=== PATIENT | male | born 1930 | race Caucasian/White ===

== ENCOUNTER 2016-09-18 10:55 | Inpatient (IN) | payer MEDICAID ==
[~2016-09-18] VITALS: Ht 175.3 cm; Wt 76.7 kg
[2016-09-18 11:04] VITALS: BP 104/64
--- NOTE | 2016-09-18 11:08 | NUR ---
PT AMBULATED TO BED 5 AT THIS TIME.
--- NOTE | 2016-09-18 11:10 | NUR ---
86M BIB FAMILY C/O POSTERIOR HEADACHE, PRESSURE, NON-RADIATING, 9/10 X THIS MORNING; PT DENIES TRAUMA OR INJURY TO SITE AT THIS TIME; PT A&OX4, PERRLA, ABLE TO SEE, BUT C/O SLIGHT BLURRY VISION AT THIS TIME; PT STATES "IT FEELS LIKE SOMETHING IS COMING UP FROM MY STOMACH TO MY THROAT", BUT DENIES N/V/D OR PAIN TO ABDOMEN AT THIS TIME; ABDOMEN ROUND, SOFT, NON-TENDER, ACTIVE BOWEL SOUNDS X 4 QUADRANTS; BL LUNG SOUNDS CLEAR, RR EVEN/UNLABORED, SKIN IS WARM/DRY/INTACT AT THIS TIME; PT AMBULATES W/ CANE; PT RESTING IN BED W/ HOB ELEVATED AND IN LOWEST POSITION; POSITIONED FOR COMFORT; ER MD MADE AWARE OF STATUS. WILL CONTINUE TO MONITOR.
--- NOTE | 2016-09-18 11:14 | NUR ---
ANGELINE FALK EVALUATING PT AT BEDSIDE.
[2016-09-18] MEDS ORDERED: NACL 0.9% 1,000 ML IV SCH (11:18)
[2016-09-18 11:43] LABS: BASOPHILS # (AUTO) 0.2 K/uL (0.00-0.22); EOSINOPHILS # (AUTO) 0.2 K/uL (0-0.4); HEMOGLOBIN 15.7 g/dL (12.0-18.0); LYMPHOCYTES # (AUTO) 0.6 K/uL (2.0-11.5); LYMPHOCYTES % (AUTO) 11.2 % (20.5-51.1); MEAN CORPUSCULAR HEMOGLOBIN 30 pg (27-31); MEAN CORPUSCULAR HGB CONC 32 g/dL (33-37); MEAN CORPUSCULAR VOLUME 95 fL (80-94); MONOCYTES # (AUTO) 0.7 K/uL (0.8-1.0); MONOCYTES % (AUTO) 12.6 % (1.7-9.3); NEUTROPHILS # (AUTO) 3.8 K/uL (1.8-7.7); NEUTROPHILS % (AUTO) 70.2 % (42.2-75.2); PLATELET COUNT (AUTO) 254 K/uL (140-450); RED BLOOD CELL COUNT(AUTO) 5.15 MIL/uL (4.20-6.10); RED CELL DISTRIBUTION WIDTH 14.1 % (11.6-13.7); WHITE BLOOD COUNT (AUTO) 5.5 K/uL (4.8-10.8)
[2016-09-18 11:50] LABS: APPEARANCE,URINE HAZY (CLEAR); BILIRUBIN,URINE NEGATIVE (NEGATIVE); BLOOD, URINE NEGATIVE (NEGATIVE); COLOR,URINE YELLOW (YELLOW); LEUKOCYTE ESTERASE ,URINE NEGATIVE (NEGATIVE); NITRITE, URINE NEGATIVE (NEGATIVE); PH,URINE 5.5 (5.0-9.0); PROTEIN,URINE NEGATIVE (NEGATIVE); UGLUCOSE NEGATIVE (NEGATIVE); UROBILINOGEN,URINE 0.2 EU/dL (0.2 - 1)
--- NOTE | 2016-09-18 11:54 | NUR ---
XRAY AT BEDSIDE.
--- NOTE | 2016-09-18 12:05 | NUR ---
Yobani flynn in [facility] - 09/18/16 at 1205 by DEEDEE GPt report given to WILBERT MALONEY. Transfer of care at this time.
--- NOTE | 2016-09-18 12:05 | NUR ---
Pt report given to WILBERT MALONEY. Transfer of care at this time.
[2016-09-18 12:40] LABS: ANION GAP 9.7 (8-16); CALCIUM 8.2 mg/dL (8.5-10.1); CARBON DIOXIDE 31.7 mmol/L (21-32); CHLORIDE 106 mmol/L (98-107); CREATININE 0.9 mg/dL (0.6-1.3); GLUCOSE 101 mg/dL (74-106); POTASSIUM 4.4 mmol/L (3.5-5.1); SODIUM SERUM 143 mmol/L (136-145); UREA NITROGEN, BLOOD 15 mg/dL (7-18)
[2016-09-18 12:45] LABS: ALANINE AMINOTRANSFERASE 31 U/L (12-78); ALBUMIN 3.1 g/dL (3.4-5.0); ALKALINE PHOSPHATASE 81 U/L (46-116); ASPARTATE AMINOTRANSFERASE 40 U/L (15-37); LIPASE 69 U/L (73-393); TOTAL BILIRUBIN 0.7 mg/dL (0.0-1.0); TOTAL PROTEIN, SERUM 6.6 g/dL (6.4-8.2)
--- NOTE | 2016-09-18 12:58 | NUR ---
Patient taken to CT scan via gurney by [facility].
[2016-09-18 13:00] LABS: CREATINE KINASE MB 0.8 ng/mL (0-3.6)
--- NOTE | 2016-09-18 13:46 | NUR ---
Patient appears to be resting comfortably in bed. VSS.
[2016-09-18] MEDS: NACL 0.9% 1,000 ML IV SCH (13:56)
[2016-09-18] MEDS ORDERED: MORPHINE SULFATE 2 MG/ML SYR IVP PRN (14:00)
[2016-09-18] MEDS: PANTOPRAZOLE 40 MG TABEC PO SCH (14:00)
[2016-09-18] MEDS ORDERED: ACETAMINOPHEN 325 MG TAB PO PRN (14:00)
[2016-09-18] MEDS: LISINOPRIL 5 MG TAB PO SCH (14:00)
[2016-09-18] MEDS: CARVEDILOL 6.25 MG TAB PO SCH ×2 (14:00→20:52)
[2016-09-18] MEDS ORDERED: DOCUSATE SODIUM 100 MG GELCAP PO PRN (14:00)
[2016-09-18] MEDS ORDERED: ASPIRIN 325 MG TABEC PO SCH ×2 (14:00→15:50)
[2016-09-18] MEDS ORDERED: HYDROcodone/APAP 7.5/325 MG 1 TAB PO PRN (14:00)
[2016-09-18] MEDS: ATORVASTATIN 20 MG TAB PO SCH (14:00)
[2016-09-18] MEDS ORDERED: ONDANSETRON 4 MG/2 ML VIAL IM/IVP PRN (14:00)
[2016-09-18] MEDS ORDERED: ALBUTEROL SULFATE/IPRATROPIU 3 ML SOL IH PRN (14:10)
[2016-09-18 14:34] LABS: INR 1.1 (0.8-1.2); PARTIAL THROMBOPLASTIN TIME 28.6 secs (22-35.6); PROTHROMBIN TIME 10.7 secs (10.8-13.4)
--- NOTE | 2016-09-18 14:45 | NUR ---
RECEIVED REPORT FROM FELICITAS ATKINS IN ER, PT ARRIVED AND IS AWAKE AND ALERT, NO SIGNS OF ACUTE DISTRESS. BREATHING EVEN AND UNLABORED BILATERALLY. BOWEL SOUNDS ACTIVE IN ALL 4 QUADRANTS, BOWEL AND BLADDER CONTINENCE, SKIN INTACT, IV PATENT AND ASYMPTOMATIC WITHOUT REDNESS OR SWELLING, AMBULATORY USES CANE, APPLIED TELE MONITOR. PT SET[place] SPEAKING. ORIENTED PATIENT TO UNIT AND HOSPITAL, PT VERBALIZED UNDERSTANDING, BED IN LOW POSITION WITH BILATERAL HALF SIDE RAILS UP, CALL LIGHT WITHIN REACH.
[2016-09-18 14:51] LABS: CHOL/HDL RATIO 3.3 (1-4.5); FREE T4 (FREE THYROXINE) 1.03 ng/dL (0.76-1.46); MAGNESIUM 1.9 mg/dL (1.8-2.4); PHOSPHORUS 3.6 mg/dL (2.5-4.9); THYROID STIMULATING HORMONE 1.07 uIU/mL (0.34-3.76)
--- NOTE | 2016-09-18 14:54 | NUR ---
Patient will be admitted to care of DR. MARQUEZ. Admited to TELE. Will go to room 124B. Belongings list completed. Report to WILBERT HUNT.
[2016-09-18] MEDS ORDERED: CARVEDILOL 6.25 MG TAB PO SCH (15:50)
[2016-09-18] MEDS ORDERED: PANTOPRAZOLE 40 MG TABEC PO SCH (15:50)
[2016-09-18] MEDS ORDERED: LISINOPRIL 5 MG TAB PO SCH (15:50)
[2016-09-18] MEDS ORDERED: ATORVASTATIN 20 MG TAB PO SCH (15:50)
[2016-09-18] MEDS ORDERED: metroNIDAZOLE 500 MG/NS PREMIX 100 ML IV SCH (15:55)
--- NOTE | 2016-09-18 16:06 | NUR ---
CALLED PHARMACY SCHEDULED MEDICATIONS FOR 1400 ARE NOT SHOWING UP IN THE [facility], PER PHARMACY GLITCH ENTERED IN ONE TIME DOSE FOR TODAY'S MEDICATIONS. PER DR CHARLTON, OKAY TO GIVE MEDICATIONS ONLY WITH NPO.
[2016-09-18] MEDS: metroNIDAZOLE 500 MG/NS PREMIX 100 ML IV SCH ×2 (16:18→20:52)
[2016-09-18] MEDS ORDERED: ECOTRIN 81 MG TABEC PO SCH (16:25)
[2016-09-18] MEDS ORDERED: KETOROLAC 15 MG/ML VIAL IVP SCH (17:00)
[2016-09-18] MEDS ORDERED: APAP/BUTAL/CAFF 325/50/40 MG 1 TAB PO PRN (17:20)
[2016-09-18] MEDS: LEVOFLOXACIN 750 MG/D5W PREMIX 150 ML IV SCH (17:21)
--- NOTE | 2016-09-18 19:30 | NUR ---
RECEIVED REPORT FROM DAY RN AT BEDSIDE, PATIENT IS AAOX4 UPPER SORBIAN SPEAKING, ON ROOM AIR NO SOB OR SIGN OF DISTRESS, IV TO LEFT AC PATENT AND INTACT, SKIN INTACT, PATIENT DENIES PAIN, ONLY STATES DISCOMFORT IN THE ABDOMEN LIKE IT IS FULL OF GAS, DOES NOT WANT ANY MEDICATION. DISCUSSED PLAN OF CARE WITH PATIENT, PATIENT VERBALIZED UNDERSTANDING, SAFETY MEASURES CHECKED, CALL LIGHT WITHIN REACH. WILL CONTINUE TO MONITOR.
--- NOTE | 2016-09-18 19:37 | NUR ---
PT AWAKE AND ALERT, NO SIGNS OF ACUTE DISTRESS. BED IN LOW POSITION BILATERAL HALF SIDE RAILS UP WITH CALL LIGHT WITHIN REACH. ENDORSED PATIENT TO ETYMOLOGY PROFESSOR NURSE FOR CONTINUITY OF CARE.
[2016-09-18 20:00] VITALS: BP 112/74
--- NOTE | 2016-09-18 20:40 | NUR ---
PM MEDS ADMINISTERED, PATIENT TOLERATED WELL, PATIENT RESTING COMFORTABLE IN BED, CALL LIGHT WITHIN REACH. WILL CONTINUE TO MONITOR.
--- NOTE | 2016-09-18 22:30 | NUR ---
PATIENT SLEEPING, NO SIGN OF DISTRESS, CALL LIGHT WITHIN REACH. WILL CONTINUE TO MONITOR
[2016-09-18 23:55] VITALS: BP 111/67
--- NOTE | 2016-09-18 23:56 | NUR ---
VITAL SIGNS STABLE, NO SIGN OF DISTRESS, CALL LIGHT WITHIN REACH. WILL CONTINUE TO MONITOR.
--- NOTE | 2016-09-19 | NUR ---
VITAL SIGNS STABLE, NO SOB OR SIGN OF DISTRESS, CALL LIGHT WITHIN REACH, WILL CONTINUE TO MONITOR
--- NOTE | 2016-09-19 02:45 | NUR ---
PATIENT SLEEPING, NO SOB OR SIGN OF DISTRESS, WILL CONTINUE TO MONITOR
[2016-09-19 04:00] VITALS: BP 120/68
--- NOTE | 2016-09-19 04:00 | NUR ---
VITAL SIGNS STABLE, NO SOB OR SIGN OF DISTRESS, CALL LIGHT WITHIN REACH. WILL CONTINUE MONITOR
[2016-09-19] MEDS: metroNIDAZOLE 500 MG/NS PREMIX 100 ML IV SCH ×3 (05:16→21:14)
[2016-09-19] MEDS: NACL 0.9% 1,000 ML IV SCH ×2 (06:37→10:12)
--- NOTE | 2016-09-19 07:29 | NUR ---
RECEIVED PT IN BED. AWAKE, ALERT ORIENTEDX4. NO SOB NOTED. DENIES ANY PAIN OR DISCOMFORT AT THIS TIME. POSITIVE BOWEL SOUNDS NOTED ON FOUR QUADRANTS. PT NPO. DENIES ANY PROBLEM WITH BOWEL AND BLADDER ELIMINATION AT THIS TIME. PT AMBULATORY WITH STAND BY ASSIST. SAFETY PRECAUTION IN PLACE. CALL LIGHT WITHIN REACH.
--- NOTE | 2016-09-19 07:30 | NUR ---
ENDORSED PATIENT TO DAY RN AT BEDSIDE, PATIENT IN STABLE CONDITION
[2016-09-19 07:36] LABS: BASOPHILS # (AUTO) 0.1 K/uL (0.00-0.22); BASOPHILS % (AUTO) 1.9 % (0.0-2.0); EOSINOPHILS # (AUTO) 0.2 K/uL (0-0.4); EOSINOPHILS % (AUTO) 3.2 % (0.0-4.0); HEMATOCRIT 42.8 % (36-52); HEMOGLOBIN 14.4 g/dL (12.0-18.0); LYMPHOCYTES # (AUTO) 1.1 K/uL (2.0-11.5); LYMPHOCYTES % (AUTO) 18.9 % (20.5-51.1); MEAN CORPUSCULAR HEMOGLOBIN 32 pg (27-31); MEAN CORPUSCULAR HGB CONC 34 g/dL (33-37); MEAN CORPUSCULAR VOLUME 94 fL (80-94); MONOCYTES # (AUTO) 0.4 K/uL (0.8-1.0); MONOCYTES % (AUTO) 7.7 % (1.7-9.3); NEUTROPHILS # (AUTO) 3.9 K/uL (1.8-7.7); NEUTROPHILS % (AUTO) 68.3 % (42.2-75.2); PLATELET COUNT (AUTO) 217 K/uL (140-450); RED BLOOD CELL COUNT(AUTO) 4.56 MIL/uL (4.20-6.10); RED CELL DISTRIBUTION WIDTH 13.8 % (11.6-13.7); WHITE BLOOD COUNT (AUTO) 5.7 K/uL (4.8-10.8)
[2016-09-19 07:43] LABS: ANION GAP 11.6 (8-16); CALCIUM 7.9 mg/dL (8.5-10.1); CARBON DIOXIDE 29.7 mmol/L (21-32); CHLORIDE 106 mmol/L (98-107); CREATININE 0.9 mg/dL (0.6-1.3); GLUCOSE 84 mg/dL (74-106); POTASSIUM 4.3 mmol/L (3.5-5.1); SODIUM SERUM 143 mmol/L (136-145); UREA NITROGEN, BLOOD 14 mg/dL (7-18)
[2016-09-19 07:56] LABS: MAGNESIUM 1.7 mg/dL (1.8-2.4); PHOSPHORUS 3.4 mg/dL (2.5-4.9)
[2016-09-19 08:00] VITALS: BP 102/52
[2016-09-19] MEDS: ECOTRIN 81 MG TABEC PO SCH (09:00)
[2016-09-19] MEDS: PANTOPRAZOLE 40 MG TABEC PO SCH (09:00)
[2016-09-19] MEDS: LISINOPRIL 5 MG TAB PO SCH (09:00)
[2016-09-19] MEDS: ATORVASTATIN 20 MG TAB PO SCH (09:00)
[2016-09-19] MEDS: CARVEDILOL 6.25 MG TAB PO SCH ×2 (09:00→21:14)
--- NOTE | 2016-09-19 11:47 | NUR ---
FAMILY CAME TO SEE PT,A ND REQUESTED TO SEE THE DOCTOR. DR. CHARLTON MADE AWARE. HE SAID THAT HE WILL BE DOING THEIR ROUNDS. FAMILY MADE AWARE.
--- NOTE | 2016-09-19 11:52 | NUR ---
DR. CHARLTON CAME TO SEE PT. AND EXPLAINED TO PT AND FAMILY ABOUT PT'S STATUS AND CONDITION. FAMILY AND PT VERBALIZED UNDERSTANDING.
[2016-09-19 12:00] VITALS: BP 127/80
[2016-09-19 16:00] VITALS: BP 131/91
[2016-09-19] MEDS: LEVOFLOXACIN 750 MG/D5W PREMIX 150 ML IV SCH (16:10)
[2016-09-19] MEDS ORDERED: MAGNESIUM OXIDE 400 MG TAB PO SCH (17:55)
--- NOTE | 2016-09-19 19:30 | NUR ---
RECEIVED REPORT FROM DAY RN AT BEDSIDE, PATIENT IS AAOX4 ON ROOM AIR, NO SOB OR SIGN OF DISTRESS AT THIS TIME, IV TO LEFT AC PATENT AND INTACT, SKIN INTACT, PATIENT DENIES PAIN AT THIS TIME, DISCUSSED PLAN OF CARE WITH PATIENT, PATIENT VERBALIZED UNDERSTANDING, SAFETY MEASURES CHECKED, CALL LIGHT WITHIN REACH. WILL CONTINUE TO MONITOR
--- NOTE | 2016-09-19 19:36 | NUR ---
ENDORSED PT TO NEXT SHIFT FOR CONTINUITY OF CARE. PT KEPT CLEAN, DRY, AND COMFORTABLE, NEEDS ATTENDED. NO SOB, DENIES ANY PAIN OR DISCOMFORT AT THIS TIME. PT'S FAMILY AT BEDSIDE.
[2016-09-19 20:00] VITALS: BP 145/74
--- NOTE | 2016-09-19 21:17 | NUR ---
PM MEDS ADMINISTERED, PATIENT TOLERATED WELL, WILL CONTINUE TO MONITOR
--- NOTE | 2016-09-19 22:40 | NUR ---
PATIENT RESTING IN BED, NO SOB OR SIGN OF DISTRESS AT THIS TIME, CALL LIGHT WITHIN REACH. WILL CONTINUE TO MONITOR
--- NOTE | 2016-09-20 00:15 | NUR ---
VITAL SIGNS STABLE, NO SOB OR SIGN OF DISTRESS, CALL LIGHT WITHIN REACH. WILL CONTINUE TO MONITOR.
[2016-09-20 00:46] VITALS: BP 101/65
--- NOTE | 2016-09-20 02:30 | NUR ---
PATIENT SLEEPING, NO SIGN OF DISTRESS, CALL LIGHT WITHIN REACH. WILL CONTINUE TO MONITOR.
[2016-09-20 04:00] VITALS: BP 124/69
--- NOTE | 2016-09-20 04:00 | NUR ---
VITAL SIGN STABLE, NO SIGN OF DISTRESS, WILL CONTINUE TO MONITOR
[2016-09-20] MEDS: metroNIDAZOLE 500 MG/NS PREMIX 100 ML IV SCH ×3 (04:55→20:38)
[2016-09-20 06:04] LABS: BASOPHILS # (AUTO) 0.2 K/uL (0.00-0.22); BASOPHILS % (AUTO) 3.1 % (0.0-2.0); EOSINOPHILS # (AUTO) 0.2 K/uL (0-0.4); EOSINOPHILS % (AUTO) 2.6 % (0.0-4.0); HEMATOCRIT 42.4 % (36-52); HEMOGLOBIN 14.2 g/dL (12.0-18.0); LYMPHOCYTES # (AUTO) 1.1 K/uL (2.0-11.5); LYMPHOCYTES % (AUTO) 17.4 % (20.5-51.1); MEAN CORPUSCULAR HEMOGLOBIN 31 pg (27-31); MEAN CORPUSCULAR HGB CONC 33 g/dL (33-37); MEAN CORPUSCULAR VOLUME 94 fL (80-94); MONOCYTES # (AUTO) 0.5 K/uL (0.8-1.0); MONOCYTES % (AUTO) 7.6 % (1.7-9.3); NEUTROPHILS # (AUTO) 4.4 K/uL (1.8-7.7); NEUTROPHILS % (AUTO) 69.3 % (42.2-75.2); PLATELET COUNT (AUTO) 215 K/uL (140-450); RED BLOOD CELL COUNT(AUTO) 4.53 MIL/uL (4.20-6.10); RED CELL DISTRIBUTION WIDTH 13.8 % (11.6-13.7); WHITE BLOOD COUNT (AUTO) 6.4 K/uL (4.8-10.8)
[2016-09-20 06:30] LABS: ANION GAP 12.2 (8-16); CALCIUM 7.7 mg/dL (8.5-10.1); CARBON DIOXIDE 29.9 mmol/L (21-32); CHLORIDE 105 mmol/L (98-107); GLUCOSE 71 mg/dL (74-106); POTASSIUM 4.1 mmol/L (3.5-5.1); SODIUM SERUM 143 mmol/L (136-145); UREA NITROGEN, BLOOD 14 mg/dL (7-18)
[2016-09-20 06:39] LABS: MAGNESIUM 1.6 mg/dL (1.8-2.4); PHOSPHORUS 3.2 mg/dL (2.5-4.9)
--- NOTE | 2016-09-20 07:33 | NUR ---
ENDORSED PATIENT TO DAY RN AT BEDSIDE, PATIENT IN STABLE CONDITION
--- NOTE | 2016-09-20 07:34 | NUR ---
RECEIVED PT IN BED, AWAKE, ALERT ORIENTED X4. NO SOB NOTED. DENIES ANY PAIN OR DISCOMFORT AT THIS TIME. POSITIVE BOWEL SOUNDS NOTED ON FOUR QUADRANTS. PT AMBULATORY. DENIES ANY DISCOMFORT WITH BOWEL OR BLADDER ELIMINATION AT THIS TIME.SAFETY PRECAUTION IN PLACE. CALL LIGHT WITHIN REACH.
[2016-09-20 08:00] VITALS: BP 132/69
[2016-09-20] MEDS: LISINOPRIL 5 MG TAB PO SCH (08:42)
[2016-09-20] MEDS: ECOTRIN 81 MG TABEC PO SCH (08:42)
[2016-09-20] MEDS: PANTOPRAZOLE 40 MG TABEC PO SCH (08:42)
[2016-09-20] MEDS: CARVEDILOL 6.25 MG TAB PO SCH (08:43)
[2016-09-20] MEDS: ATORVASTATIN 20 MG TAB PO SCH (08:43)
--- NOTE | 2016-09-20 08:55 | NUR ---
PATIENT HAS BEEN SCREENED AND CATEGORIZED MODERATE NUTRITION RISK. PATIENT WILL BE SEEN WITHIN 3-5 DAYS OF ADMISSION. 09/20/16-09/22/[address]
[2016-09-20 09:13] LABS: T4 (THYROXINE) 7.5 ug/dL (4.5-12.0)
--- NOTE | 2016-09-20 10:15 | NUR ---
DR. SMITH MADE AWARE OF PT MG LEVEL 1.6.
[2016-09-20] MEDS ORDERED: METOPROLOL 25 MG TAB PO SCH (11:00)
--- NOTE | 2016-09-20 11:00 | NUR ---
DR. SMITH MADE AWARE OF BP OF PT AT 99/62 HR 73. AND THE PREVIOUSLY ORDERED LOPRESSOR WILL FURTHER BRING BLOOD PRESSURE DOWN. LOPRESSOR DUE AT 1100 HELD AND WAS DISCONTINUED BY .
[2016-09-20 12:00] VITALS: BP 99/62
[2016-09-20] MEDS: NACL 0.9% 1,000 ML IV SCH ×2 (12:00→21:38)
[2016-09-20] MEDS ORDERED: MAG SULF 2000 MG/WATER PREMIX 50 ML IV SCH (12:00)
[2016-09-20 16:00] VITALS: BP 106/72
[2016-09-20] MEDS: LEVOFLOXACIN 750 MG/D5W PREMIX 150 ML IV SCH (16:01)
[2016-09-20 18:44] LABS: HEMOGLOBIN A1C 5.7 % (4.8-5.6)
--- NOTE | 2016-09-20 19:31 | NUR ---
PT AWAKE, ALERT ORIENTED X4. NO SOB NOTED. DENIES ANY PAIN OR DISCOMFORT AT THIS TIME. PT ENDORSED TO NEXT SHIFT ON STABLE CONDITION FOR CONTINUITY OF CARE.
--- NOTE | 2016-09-20 19:32 | NUR ---
RECEIVED REPORT FROM DAY RN FOR CONTINUITY OF CARE. PATIENT IS A&OX4, DISCUSSED PLAN OF CARE WITH PATIENT, VERBALIZED UNDERSTANDING. SHIFT ASSESSMENT DONE, VS TAKEN, STABLE. NO S/S OF RESPIRATORY DISTRESS NOTED ON ROOM AIR. PATIENT DENIES PAIN AT THIS TIME. IV TO LT AC PATENT AND INFUSING FLUIDS WELL. SAFETY MEASURES ENFORCED, CALL LIGHT WITHIN REACH. WILL CONTINUE TO MONITOR.
[2016-09-20 20:00] VITALS: BP 115/59
--- NOTE | 2016-09-20 20:38 | NUR ---
DUE MEDICATIONS ADMINISTERED, TOLERATED WELL. PATIENT RESTING IN BED, NO S/S OF DISTRESS OR DISCOMFORT NOTED. CALL LIGHT WITHIN REACH, WILL CONTINUE TO MONITOR.
[2016-09-20] MEDS: METOPROLOL 25 MG TAB PO SCH (21:44)
--- NOTE | 2016-09-20 22:00 | NUR ---
PATIENT SLEEPING AT THIS TIME, NO S/S OF DISTRESS OR DISCOMFORT NOTED. SAFETY MEASURES ENFORCED, CALL LIGHT WITHIN REACH.
--- NOTE | 2016-09-20 23:45 | NUR ---
VS TAKEN, STABLE. PT STATED IV TO LT AC HURTING, REINSERTED NEW IV LINE TO LT FA PATENT AND INFUSING FLUIDS. CALL LIGHT WITHIN REACH, WILL CONTINUE TO MONITOR.
[2016-09-21] VITALS: BP 128/66
--- NOTE | 2016-09-21 03:56 | NUR ---
VS TAKEN, STABLE. PATIENT SLEEPING AT THIS TIME. NO S/S OF DISTRESS OR DISCOMFORT NOTED. WILL CONTINUE TO MONITOR.
[2016-09-21 04:00] VITALS: BP 122/68
[2016-09-21] MEDS: metroNIDAZOLE 500 MG/NS PREMIX 100 ML IV SCH ×2 (05:10→13:28)
--- NOTE | 2016-09-21 06:10 | NUR ---
PATIENT IS ASLEEP, NO S/S OF RESPIRATORY DISTRESS NOTED. CALL LIGHT WITHIN REACH.
[2016-09-21 06:24] LABS: BASOPHILS # (AUTO) 0.1 K/uL (0.00-0.22); BASOPHILS % (AUTO) 2.2 % (0.0-2.0); EOSINOPHILS # (AUTO) 0.1 K/uL (0-0.4); EOSINOPHILS % (AUTO) 2.2 % (0.0-4.0); HEMATOCRIT 45.4 % (36-52); HEMOGLOBIN 14.8 g/dL (12.0-18.0); LYMPHOCYTES # (AUTO) 1.2 K/uL (2.0-11.5); LYMPHOCYTES % (AUTO) 18.3 % (20.5-51.1); MEAN CORPUSCULAR HEMOGLOBIN 31 pg (27-31); MEAN CORPUSCULAR HGB CONC 33 g/dL (33-37); MEAN CORPUSCULAR VOLUME 96 fL (80-94); MONOCYTES # (AUTO) 0.5 K/uL (0.8-1.0); MONOCYTES % (AUTO) 7.5 % (1.7-9.3); NEUTROPHILS # (AUTO) 4.8 K/uL (1.8-7.7); NEUTROPHILS % (AUTO) 69.8 % (42.2-75.2); PLATELET COUNT (AUTO) 219 K/uL (140-450); RED BLOOD CELL COUNT(AUTO) 4.74 MIL/uL (4.20-6.10); RED CELL DISTRIBUTION WIDTH 13.7 % (11.6-13.7); WHITE BLOOD COUNT (AUTO) 6.7 K/uL (4.8-10.8)
[2016-09-21 06:33] LABS: ANION GAP 8.2 (8-16); CARBON DIOXIDE 33.6 mmol/L (21-32); CHLORIDE 108 mmol/L (98-107); GLUCOSE 87 mg/dL (74-106); POTASSIUM 3.8 mmol/L (3.5-5.1); SODIUM SERUM 146 mmol/L (136-145); UREA NITROGEN, BLOOD 11 mg/dL (7-18)
[2016-09-21 06:42] LABS: MAGNESIUM 1.8 mg/dL (1.8-2.4); PHOSPHORUS 3.4 mg/dL (2.5-4.9)
--- NOTE | 2016-09-21 07:14 | NUR ---
RECEIVED REPORT FROM NIGHT NURSE, PT IS AOOX4 ARMENIAN SPEAKING, ON ROOM AIR, IV TO LEFT FA 22G INFUSING WELL, SKIN INTACT. PT STATES NO PAIN AT THIS TIME. INITIAL ASSESSMENT COMPLETED, ALL SAFETY PRECAUTIONS MET. ALL NEEDS MET. CALL LIGHT WITHIN REACH. WILL CONTINUE TO MONITOR.
--- NOTE | 2016-09-21 07:14 | NUR ---
ENDORSED PATIENT TO DAY RN FOR CONTINUITY OF CARE, PATIENT IS IN STABLE CONDITION.
[2016-09-21 08:00] VITALS: BP 130/81
[2016-09-21] MEDS: NACL 0.9% 1,000 ML IV SCH (08:36)
[2016-09-21] MEDS: ATORVASTATIN 20 MG TAB PO SCH (08:53)
[2016-09-21] MEDS: METOPROLOL 25 MG TAB PO SCH (08:53)
[2016-09-21] MEDS: ECOTRIN 81 MG TABEC PO SCH (08:53)
[2016-09-21] MEDS: PANTOPRAZOLE 40 MG TABEC PO SCH (08:53)
[2016-09-21] MEDS: LISINOPRIL 5 MG TAB PO SCH (08:54)
--- NOTE | 2016-09-21 08:56 | NUR ---
DUE MEDICATIONS GIVEN, PT TOLERATED WELL. ALL NEEDS MET. CALL LIGHT WITHIN REACH. WILL CONTINUE TO MONITOR.
[2016-09-21] MEDS ORDERED: METR500T1 PO (10:44)
[2016-09-21] MEDS ORDERED: LEVO500T22 PO (10:44)
[2016-09-21] MEDS ORDERED: DOCU-67 PO (10:44)
[2016-09-21] MEDS ORDERED: ACET-2619 PO (10:44)
[2016-09-21 12:00] VITALS: BP 106/62
--- NOTE | 2016-09-21 13:29 | NUR ---
DUE MEDICATION GIVEN. DISCUSSED DISCHARGE PLAN WITH PT, PT VERBALIZED UNDERSTANDING. ALL NEEDS MET.
--- NOTE | 2016-09-21 14:05 | NUR ---
PT SIGNED ALL DISCHARGE PAPERWORK, DISCHARGE INSTRUCTIONS GIVEN, NEW MEDICATION GIVEN, IV REMOVED TIP INTACT, BOTH PT AND DAUGHTER VERBALIZED UNDERSTANDING.
--- NOTE | 2016-09-21 14:12 | NUR ---
PT WAS WALKED TO FRONT LOBBY IN STABLE CONDITION, DAUGHTER AND WITH PT.
== END 2016-09-21 14:14 | disposition home or self-care (01) | DRG 244 ==
LOC: MED 10:55 → MTU 13:58
PROVIDERS: ADMIT Family Medicine; ATTEND Family Medicine
DX: K57.32 Diverticulitis of large intestine without perforation or abscess without bleeding (principal); E43 Unspecified severe protein-calorie malnutrition; I48.91 Unspecified atrial fibrillation; G90.9 Disorder of the autonomic nervous system, unspecified; F17.210 Nicotine dependence, cigarettes, uncomplicated; G43.909 Migraine, unspecified, not intractable, without status migrainosus; K80.20 Calculus of gallbladder without cholecystitis without obstruction; M94.0 Chondrocostal junction syndrome [Tietze]; Z53.29 Procedure and treatment not carried out because of patient's decision for other reasons; Z90.49 Acquired absence of other specified parts of digestive tract; Z68.25 Body mass index [BMI] 25.0-25.9, adult
CPT/HCPCS: 36415; 70450; 71010; 76700; 80048; 80053; 81003; 82140; 82150; 82550; 82553; 83036; 83690; 83735; 83880; 84100; 84436; 84439; 84443; 84479; 84484; 85025; 85610; 85730; 87081; 93005; 93880; 96360; 96361; 99285; J1885; J1956; J2270; J3475; J3490; J7030; Q0092; Q9967

== ENCOUNTER 2016-10-31 20:16 | Inpatient (IN) | payer MEDICAID ==
[~2016-10-31] VITALS: Ht 170.2 cm; Wt 76.7 kg
[~2016-10-31 20:16] MED LIST: ACET-2619 PO; DOCU-67 PO; LEVO500T22 PO; METR500T1 PO
[2016-10-31 20:31] VITALS: BP 101/57
--- NOTE | 2016-10-31 20:38 | NUR ---
TO BED 4
[2016-10-31] MEDS ORDERED: METO25TA PO (20:39)
[2016-10-31] MEDS ORDERED: RIVA20TA PO (20:39)
--- NOTE | 2016-10-31 20:45 | NUR ---
Patient being evaluated by DR. HOLDEN at bedside.
--- NOTE | 2016-10-31 21:00 | NUR ---
86Y/M PATIENT PRESENTS TO ED WITH C/O CHEST PAIN X 1 DAY . PT STATES CHEST PAIN WITH DIZZINESS. DENIES N/V/D; SKIN IS PINK/WARM/DRY; AAOX4 WITH EVEN AND STEADY GAIT; LUNGS CLEAR BL; RESPIRATIONS ROOM AIR, RR 30, HR EVEN AND REGULAR; PT DENIES ANY FEVER, OR COUGH AT THIS TIME; PATIENT STATES PAIN OF 7/10 AT THIS TIME; VSS; PATIENT POSITIONED FOR COMFORT; HOB ELEVATED; BEDRAILS UP X2; BED DOWN. ER MD MADE AWARE OF PT STATUS.
[2016-10-31 21:01] LABS: BASOPHILS # (AUTO) 0.1 K/uL (0.00-0.22); EOSINOPHILS # (AUTO) 0.2 K/uL (0-0.4); EOSINOPHILS % (AUTO) 3.2 % (0.0-4.0); HEMATOCRIT 41.4 % (36-52); HEMOGLOBIN 13.7 g/dL (12.0-18.0); LYMPHOCYTES # (AUTO) 0.8 K/uL (2.0-11.5); LYMPHOCYTES % (AUTO) 12.6 % (20.5-51.1); MEAN CORPUSCULAR HEMOGLOBIN 31 pg (27-31); MEAN CORPUSCULAR HGB CONC 33 g/dL (33-37); MEAN CORPUSCULAR VOLUME 95 fL (80-94); MONOCYTES # (AUTO) 0.9 K/uL (0.8-1.0); MONOCYTES % (AUTO) 13.2 % (1.7-9.3); NEUTROPHILS # (AUTO) 4.5 K/uL (1.8-7.7); PLATELET COUNT (AUTO) 249 K/uL (140-450); RED BLOOD CELL COUNT(AUTO) 4.37 MIL/uL (4.20-6.10); RED CELL DISTRIBUTION WIDTH 13.6 % (11.6-13.7); WHITE BLOOD COUNT (AUTO) 6.5 K/uL (4.8-10.8)
[2016-10-31 21:13] LABS: ANION GAP 8.3 (8-16); CALCIUM 7.5 mg/dL (8.5-10.1); CARBON DIOXIDE 31.7 mmol/L (21-32); CHLORIDE 107 mmol/L (98-107); CREATININE 0.8 mg/dL (0.7-1.3); GLUCOSE 95 mg/dL (74-106); SODIUM SERUM 143 mmol/L (136-145); UREA NITROGEN, BLOOD 13 mg/dL (7-18)
[2016-10-31 21:17] LABS: INR 1.3 (0.8-1.2); PROTHROMBIN TIME 13.3 secs (10.8-13.4)
[2016-10-31 21:19] LABS: ALANINE AMINOTRANSFERASE 19 U/L (16-63); ALBUMIN 2.9 g/dL (3.4-5.0); ALKALINE PHOSPHATASE 84 U/L (46-116); ASPARTATE AMINOTRANSFERASE 16 U/L (15-37); LIPASE 54 U/L (73-393); TOTAL BILIRUBIN 0.4 mg/dL (0.0-1.0); TOTAL PROTEIN, SERUM 6.4 g/dL (6.4-8.2)
[2016-10-31] MEDS ORDERED: ASPIRIN 325 MG TAB PO ONE (21:25)
[2016-10-31] MEDS ORDERED: NITROGLYCERIN 0.4 MG TAB SL ONE (21:25)
[2016-10-31] MEDS ORDERED: NACL 0.9% 1,000 ML IV ONE (21:30)
[2016-10-31 21:34] LABS: CREATINE KINASE MB 0.6 ng/mL (0-3.6)
[2016-10-31] MEDS ORDERED: ACETAMINOPHEN 325 MG TAB PO PRN (21:55)
[2016-10-31] MEDS ORDERED: DOCUSATE SODIUM 100 MG GELCAP PO PRN (21:55)
[2016-10-31] MEDS ORDERED: HYDROcodone/APAP 7.5/325 MG 1 TAB PO PRN (21:55)
[2016-10-31] MEDS ORDERED: MORPHINE SULFATE 2 MG/ML SYR IVP PRN (21:55)
[2016-10-31] MEDS ORDERED: ONDANSETRON 4 MG/2 ML VIAL IM/IVP PRN (21:55)
[2016-10-31 21:57] LABS: LACTIC ACID 0.8 mmol/L (0.4-2.0)
--- NOTE | 2016-10-31 22:20 | NUR ---
Patient will be admitted to care of DR. GREEN. Admited to TELEMETRY. Will go to [id number]. Belongings list completed. Report to NICHOLAS.
[2016-10-31] MEDS: METOPROLOL 25 MG TAB PO SCH (22:25)
[2016-10-31] MEDS: ATORVASTATIN 20 MG TAB PO SCH (22:30)
[2016-10-31 22:50] VITALS: BP 151/72
--- NOTE | 2016-10-31 22:50 | NUR ---
ADMITTED 86 YEARS OLD MALE TO TELE UNIT, FAMILY MEMBERS AT BEDSIDE. PATIENT AWAKE ALERT ORIENTED X4, NO S/S OF ACUTE DISTRESS NOTED, PATIENT DENIES PAIN AT THIS TIME. IV PATEN AND INTACT, FLUSHED WITH NORMAL SALINE. PLAN OF CARE DISCUSSED, VERBALIZED UNDERSTANDING, CALL LIGHT WITHIN REACH, SAFETY MEASURE ENSURED, WILL CONTINUE TO MONITOR.
[2016-10-31 22:51] LABS: CHOL/HDL RATIO 3.3 (1-4.5); FREE T4 (FREE THYROXINE) 1.03 ng/dL (0.76-1.46); THYROID STIMULATING HORMONE 1.73 uIU/mL (0.34-3.74)
[2016-10-31 22:56] LABS: APPEARANCE,URINE CLEAR (CLEAR); BILIRUBIN,URINE NEGATIVE (NEGATIVE); BLOOD, URINE TRACE-L (NEGATIVE); COLOR,URINE YELLOW (YELLOW); LEUKOCYTE ESTERASE ,URINE NEGATIVE (NEGATIVE); NITRITE, URINE NEGATIVE (NEGATIVE); PH,URINE 5.5 (5.0-9.0); PROTEIN,URINE NEGATIVE (NEGATIVE); UGLUCOSE NEGATIVE (NEGATIVE); UROBILINOGEN,URINE 0.2 EU/dL (0.2 - 1)
--- NOTE | 2016-10-31 22:59 | NUR ---
Note undone in EDM - 10/31/16 at 2346 by MEDSP 86Y/M PATIENT PRESENTS TO ED WITH C/O CHEST PAIN X 1 DAY . PT STATES CHEST PAIN WITH DIZZINESS. DENIES N/V/D; SKIN IS PINK/WARM/DRY; AAOX4 WITH EVEN AND STEADY GAIT; LUNGS CLEAR BL; RESPIRATIONS ROOM AIR, RR 30, HR EVEN AND REGULAR; PT DENIES ANY FEVER, OR COUGH AT THIS TIME; PATIENT STATES PAIN OF 7/10 AT THIS TIME; VSS; PATIENT POSITIONED FOR COMFORT; HOB ELEVATED; BEDRAILS UP X2; BED DOWN. ER MADE AWARE OF PT STATUS.
[2016-10-31] MEDS: NACL 0.9% 1,000 ML IV SCH (23:00)
[2016-10-31 23:18] LABS: BACTERIA,URINE 0-2 (RARE) /HPF (None Seen); RBC,URINE 0-5 (RARE) /HPF (0-5); SQUAMOUS EPITHELIAL CELL,UR 0-3 (FEW) /LPF (0-3 (FEW)); WBC,URINE NONE SEEN /HPF (0-5)
[2016-11-01] VITALS (7 sets, daily range): BP systolic 91–146; BP diastolic 53–90
[2016-11-01] MEDS ORDERED: ATORVASTATIN 20 MG TAB PO ONE (00:35)
[2016-11-01] MEDS ORDERED: ATORVASTATIN 20 MG TAB PO SCH (00:35)
[2016-11-01] MEDS ORDERED: METOPROLOL 25 MG TAB PO ONE (00:35)
--- NOTE | 2016-11-01 01:20 | NUR ---
BP 138/88, HR 87, LOPRESSOR 25MG AND LIPITOR 10MG GIVEN ORDERED. PATIENT TOLERATED WELL. WILL CONTINUE TO MONITOR.
--- NOTE | 2016-11-01 02:08 | NUR ---
PATIENT ASLEEP IN BED, NO S/S OF ACUTE DISTRESS NOTED, CALL LIGHT WITHIN REACH, SAFETY MEASURE ENSURED, WILL CONTINUE TO MONITOR.
--- NOTE | 2016-11-01 04:09 | NUR ---
PATIENT ASLEEP IN BED, VITAL SIGNS TAKEN, BP 109/69, HR 68. WILL CONTINUE TO MONITOR.
[2016-11-01 06:14] LABS: MAGNESIUM 1.8 mg/dL (1.8-2.4); PHOSPHORUS 3.1 mg/dL (2.5-4.9)
--- NOTE | 2016-11-01 07:20 | NUR ---
ENDORSED PLAN OF CARE TO DAY RN. PATIENT IS IN STABLE CONDITION.
--- NOTE | 2016-11-01 07:25 | NUR ---
RECEIVED PT IN BED. AWAKE. ALERT ORIENTEDX4. WOLOF SPEAKING. NO SOB NOTED. DENIES ANY PAIN OR DISCOMFORT AT THIS TIME. POSITIVE BOWEL SOUNDS NOTED ON FOUR QUADRANTS. PT AMBULATORY. DENIES ANY PROBLEM WITH BOWEL OR BLADDER ELIMINATION AT THIS TIME. SAFETY PRECAUTION IN PLACE. CALL LIGHT WITHIN REACH.
[2016-11-01] MEDS: LISINOPRIL 5 MG TAB PO SCH (09:13)
[2016-11-01] MEDS: RIVAROXABAN 10 MG TAB PO SCH (09:15)
--- NOTE | 2016-11-01 09:52 | NUR ---
PATIENT HAS BEEN SCREENED AND CATEGORIZED MODERATE NUTRITION RISK. PATIENT WILL BE SEEN WITHIN 3-5 DAYS OF ADMISSION. 11/03/16-11/05/[address]
[2016-11-01] MEDS: METOPROLOL 25 MG TAB PO SCH ×2 (09:58→21:55)
--- NOTE | 2016-11-01 11:45 | NUR ---
FAMILY CAME TO SEE PT. AND DR. PEDROZA WAS ABLE TO SPEAK WITH THE FAMILY.
--- NOTE | 2016-11-01 12:54 | NUR ---
PT ABLE TO AMBULATE TO THE BATHROOM WITH STANDBY ASSIST. DENIES ANY DISCOMFORT WITH BOWEL OR BLADDER ELIMINATION. PT INDEPENDENT WITH FEEDING HIMSELF. DENIES ANY PAIN OR DISCOMFORT AT THIS TIME.
--- NOTE | 2016-11-01 14:33 | NUR ---
DR. PEDROZA MADE AWARE OF THE EKG READING ATRIAL FIB AT 1059 AND HR 47. WITH ORDERS MADE AND CARRIED OUT.
[2016-11-01] MEDS: NACL 0.9% 1,000 ML IV SCH (14:48)
--- NOTE | 2016-11-01 15:55 | NUR ---
DR PEDROZA WITH PT AND PT COMPLAINED OF DIFFICULTY BREATHING. MD ASSESSED PT, USED BLUE PHONE FOR TRANSLATION. MD TO PUT IN AN ORDER FOR BREATHING TX.
[2016-11-01] MEDS: ALBUTEROL SULFATE/IPRATROPIU 3 ML SOL IH PRN (17:07)
--- NOTE | 2016-11-01 18:00 | NUR ---
RESPIRATORY THERAPIST CAME TO SEE PT. NO ACUTE RESPIRATORY DISTRESS NOTED. PT TALKATIVE. BREATHING TX PROVIDED.
--- NOTE | 2016-11-01 18:40 | NUR ---
PARTIAL SPONGE BATH PROVIDED BY STUDENT NURSE. PT VERBALIZED COMFORT.
--- NOTE | 2016-11-01 19:17 | NUR ---
PT KEPT CLEAN, DRY AND COMFORTABLE. NEEDS ATTENDED. ENDORSED TO NEXT SHIFT ON STABLE CONDITION FOR CONTINUITY OF CARE.
--- NOTE | 2016-11-01 19:18 | NUR ---
RECEIVED REPORT FROM DAY RN FOR CONTINUITY OF CARE. PATIENT IS ALERT AND ORIENTED X4, DISCUSSED PLAN OF CARE WITH PATIENT, VERBALIZED UNDERSTANDING. SHIFT ASSESSMENT DONE, VITAL SIGNS STABLE. NO S/S OF RESPIRATORY DISTRESS NOTED ON 2L NC. PATIENT DENIES PAIN. IV TO LT FA PATENT AND INFUSING FLUIDS WELL. SAFETY PRECAUTIONS ENFORCED, CALL LIGHT WITHIN REACH. WILL CONTINUE TO MONITOR.
--- NOTE | 2016-11-01 20:04 | NUR ---
ALERT PT VISITING WITH FAMILY. NO DISTRESS/SOB/WHEEZING NOTED AT THIS TIME. NO INDICATION FOR HHN PRN TX.
[2016-11-01] MEDS: ATORVASTATIN 20 MG TAB PO SCH (21:50)
--- NOTE | 2016-11-01 21:50 | NUR ---
DUE MEDICATION ADMINISTERED, TOLERATED WELL. HELD BP MEDS PER PARAMETERS. PATIENT AMBULATED TO RESTROOM. WILL CONTINUE TO MONITOR.
[2016-11-02] VITALS: BP 99/55
--- NOTE | 2016-11-02 00:05 | NUR ---
VITAL SIGNS STABLE, URINAL EMPTIED WITH 500 ML CLEAR YELLOW URINE. SAFETY MEASURES ENFORCED, CALL LIGHT WITHIN REACH. WILL CONTINUE TO MONITOR.
--- NOTE | 2016-11-02 02:00 | NUR ---
PATIENT SLEEPING AT THIS TIME, NO S/S OF DISTRESS OR DISCOMFORT NOTED. WILL CONTINUE TO MONITOR.
[2016-11-02 04:00] VITALS: BP 126/72
--- NOTE | 2016-11-02 04:15 | NUR ---
VITAL SIGNS STABLE, PT REQUESTED BREATHING TREATMENT, PAGED RT. WILL CONTINUE TO MONITOR.
[2016-11-02] MEDS: ALBUTEROL SULFATE/IPRATROPIU 3 ML SOL IH PRN (04:35)
--- NOTE | 2016-11-02 05:57 | NUR ---
PATIENT RESTING AT THIS TIME, NO S/S OF DISTRESS OR DISCOMFORT NOTED. CALL LIGHT WITHIN REACH.
[2016-11-02] MEDS: NACL 0.9% 1,000 ML IV SCH (06:47)
[2016-11-02 07:00] LABS: ANION GAP 7.3 (8-16); CALCIUM 7.1 mg/dL (8.5-10.1); CARBON DIOXIDE 30.9 mmol/L (21-32); CHLORIDE 109 mmol/L (98-107); CREATININE 0.8 mg/dL (0.7-1.3); GLUCOSE 88 mg/dL (74-106); POTASSIUM 3.2 mmol/L (3.5-5.1); SODIUM SERUM 144 mmol/L (136-145); UREA NITROGEN, BLOOD 10 mg/dL (7-18)
--- NOTE | 2016-11-02 07:11 | NUR ---
ENDORSED PATIENT TO DAY RN FOR CONTINUITY OF CARE, PATIENT IS IN STABLE CONDITION.
--- NOTE | 2016-11-02 07:15 | NUR ---
RECEIVED PATIENT REPORT AT BEDSIDE. PATIENT AWAKE, ALERT AND ORIENTED. NO S/S OF DISTRESS NOTED. PATIENT DENIES PAIN AT THIS TIME. NO SOB. PATIENT ON 2L O2 VIA NC. IV LINE TO THE LEFT FOREARM INTACT WITH IVF INFUSING WELL. PATIENT ON TELE MONITORING. BED LOWERED WITH CALL LIGHT WITHIN REACH. WILL CONTINUE TO MONITOR
[2016-11-02 08:00] VITALS: BP 118/70
[2016-11-02 08:19] LABS: HEMOGLOBIN A1C 5.5 % (4.8-5.6); T4 (THYROXINE) 6.4 ug/dL (4.5-12.0)
[2016-11-02] MEDS: METOPROLOL 25 MG TAB PO SCH (08:51)
[2016-11-02] MEDS: LISINOPRIL 5 MG TAB PO SCH (08:52)
[2016-11-02] MEDS: RIVAROXABAN 10 MG TAB PO SCH (08:59)
[2016-11-02] MEDS ORDERED: CALCIUM CARBONATE 500 MG TAB PO SCH (09:00)
[2016-11-02] MEDS ORDERED: PANTOPRAZOLE 40 MG INJ VIAL IVP SCH (09:00)
--- NOTE | 2016-11-02 09:00 | NUR ---
ADMINISTERED DUE MEDS. PATIENT TOLERATED WELL
[2016-11-02] MEDS ORDERED: POTASSIUM CHLORIDE 10 MEQ TABER PO SCH (11:00)
[2016-11-02 12:00] VITALS: BP 95/62
[2016-11-02] MEDS ORDERED: METO25TA PO ×2 (13:17→16:38)
[2016-11-02] MEDS ORDERED: CALC-602 PO (13:17)
--- NOTE | 2016-11-02 15:22 | NUR ---
PATIENT COMFORTABLY RESTING IN BED. NO S/S OF DISTRESS NOTED
--- NOTE | 2016-11-02 15:59 | NUR ---
PATIENT SEEN BY DR CASTRO. PATIENT DENIES CHEST PAIN. NO S/S OF DISTRESS NOTED
[2016-11-02 16:00] VITALS: BP 126/63
--- NOTE | 2016-11-02 16:01 | NUR ---
PATIENT ON ROOM AIR. O2 SATURATION 94%. NO SOB
--- NOTE | 2016-11-02 16:40 | NUR ---
PATIENT AMBULATED TO THE BATHROOM TO VOID. NO S/S OF DISTRESS NOTED
--- NOTE | 2016-11-02 18:15 | NUR ---
PATIENT DISCHARGED TO HOME. DISCHARGE INSTRUCTIONS AND DISCHARGE PRESCRIPTIONS GIVEN. Granify WAS USED TO TRANSLATE TI LATVIAN. ROLLING DOWN MACHINE OPERATOR WAS KATHRYN ID NUMBER [id number]. PATIENT AND PATIENT'S DAUGHTER IN LAW VERBALIZED UNDERSTANDING. IV LINE DISCONTINUED. TELE LEADS TAKEN OFF. PATIENT LEFT WITH ALL HIS BELONGINGS AND DISCHARGE PAPERS. PATIENT LEFT IN STABLE CONDITION
[2016-11-03] MEDS ORDERED: CALCIUM CARB/VIT-D 500 MG/200 IU 1 TAB PO SCH (09:00)
== END 2016-11-02 18:15 | disposition home or self-care (01) | DRG 243 ==
LOC: MED 20:16 → MTU 22:10
PROVIDERS: ADMIT Student in an Organized Health Care Education/Training Program; ATTEND Student in an Organized Health Care Education/Training Program
DX: K21.9 Gastro-esophageal reflux disease without esophagitis (principal); E44.0 Moderate protein-calorie malnutrition; I95.9 Hypotension, unspecified; I27.2 Other secondary pulmonary hypertension; I42.0 Dilated cardiomyopathy; E83.51 Hypocalcemia; I48.2 Chronic atrial fibrillation; M94.0 Chondrocostal junction syndrome [Tietze]; I10 Essential (primary) hypertension; E87.6 Hypokalemia; E78.5 Hyperlipidemia, unspecified; Z79.01 Long term (current) use of anticoagulants; Z79.899 Other long term (current) drug therapy; Z90.49 Acquired absence of other specified parts of digestive tract; Z87.891 Personal history of nicotine dependence; Z83.3 Family history of diabetes mellitus; Z68.26 Body mass index [BMI] 26.0-26.9, adult
CPT/HCPCS: 36415; 71010; 80048; 80053; 81001; 82150; 82310; 82550; 82553; 83036; 83605; 83690; 83735; 83880; 84100; 84436; 84439; 84443; 84479; 84484; 85025; 85610; 85730; 87040; 87081; 93005; 94640; 96360; 99285; C9113; J7030; J7620

== ENCOUNTER 2016-12-13 21:32 | Inpatient (IN) | payer OTHER ==
[~2016-12-13] VITALS: Ht 167.6 cm; Wt 74.8 kg
[~2016-12-13 21:32] MED LIST changes: -ACET-2619 PO; +CALC-846 PO; +DOCU-299 PO; -DOCU-67 PO; -LEVO500T22 PO; +METO25TA PO; -METR500T1 PO; +RIVA20TA PO
[2016-12-13 21:42] VITALS: BP 114/75
--- NOTE | 2016-12-13 23:23 | NUR ---
TO ER BED 3
--- NOTE | 2016-12-13 23:27 | NUR ---
85 Y/O M W/C/O UPPER ABD PAIN AND NAUSEA X TODAY AT 1400, AND CONSTIPATION X 2 DAYS AGO. DENIES ANY SOB, OR CHEST PAIN. ON MONITOR VSS. WILL CONT TO MONITOR. ER MADE AWARE.
--- NOTE | 2016-12-13 23:42 | NUR ---
PT TAKEN FOR X-RAY.
--- NOTE | 2016-12-14 00:09 | NUR ---
PT TAKEN FOR CT SCAN.
[2016-12-14] MEDS ORDERED: KETOROLAC 60 MG/2 ML VIAL IM ONE ×2 (00:10→00:20)
--- NOTE | 2016-12-14 01:17 | NUR ---
PT FAMILY AT BEDSIDE. VSS, PT STABLE AT THIS TIME.
[2016-12-14] MEDS ORDERED: NACL 0.9% 500 ML IV ONE (01:51)
[2016-12-14] MEDS ORDERED: ONDANSETRON 4 MG/2 ML VIAL IVP ONE (01:55)
[2016-12-14 02:11] LABS: BASOPHILS # (AUTO) 0.1 K/uL (0.00-0.22); BASOPHILS % (AUTO) 0.9 % (0.0-2.0); EOSINOPHILS # (AUTO) 0.2 K/uL (0-0.4); EOSINOPHILS % (AUTO) 1.8 % (0.0-4.0); HEMATOCRIT 43.1 % (36-52); HEMOGLOBIN 13.8 g/dL (12.0-18.0); LYMPHOCYTES # (AUTO) 0.4 K/uL (2.0-11.5); MEAN CORPUSCULAR HEMOGLOBIN 31 pg (27-31); MEAN CORPUSCULAR HGB CONC 32 g/dL (33-37); MEAN CORPUSCULAR VOLUME 96 fL (80-94); MONOCYTES # (AUTO) 0.1 K/uL (0.8-1.0); NEUTROPHILS # (AUTO) 10.8 K/uL (1.8-7.7); NEUTROPHILS % (AUTO) 92.6 % (42.2-75.2); PLATELET COUNT (AUTO) 293 K/uL (140-450); RED BLOOD CELL COUNT(AUTO) 4.49 MIL/uL (4.20-6.10); RED CELL DISTRIBUTION WIDTH 14.1 % (11.6-13.7); WHITE BLOOD COUNT (AUTO) 11.6 K/uL (4.8-10.8)
[2016-12-14] MEDS: NACL 0.9% 1,000 ML IV SCH ×2 (02:24→16:47)
--- NOTE | 2016-12-14 02:24 | NUR ---
PT RESTING IN BED, VSS. NO S/S OF DISTRESS NOTED AT THE MOMENT. WILL CONT TO MONITOR.
[2016-12-14] MEDS ORDERED: ONDANSETRON 4 MG/2 ML VIAL IVP PRN ×2 (02:25→14:15)
[2016-12-14] MEDS ORDERED: ACETAMINOPHEN 325 MG TAB PO PRN (02:25)
[2016-12-14 02:29] LABS: LYMPHOCYTES % (AUTO) 3.7 % (20.5-51.1)
[2016-12-14 02:31] LABS: ANION GAP 10.5 (8-16); ASPARTATE AMINOTRANSFERASE 21 U/L (15-37); CARBON DIOXIDE 29.9 mmol/L (21-32); CHLORIDE 105 mmol/L (98-107); CREATININE 0.8 mg/dL (0.7-1.3); GLUCOSE 121 mg/dL (74-106); LIPASE 52 U/L (73-393); POTASSIUM 4.4 mmol/L (3.5-5.1); SODIUM SERUM 141 mmol/L (136-145); TOTAL BILIRUBIN 0.4 mg/dL (0.0-1.0); UREA NITROGEN, BLOOD 22 mg/dL (7-18)
--- NOTE | 2016-12-14 02:39 | NUR ---
Patient will be admitted to care of DR OCAMPO. Admited to TELEMETRY. Will go to room 108A. Belongings list completed. Report to WILBERT CROSS.
--- NOTE | 2016-12-14 02:41 | NUR ---
PT TRASFERED TO FLOOR VIA GURNEY, ACCOMPANIED BY RN AND EMT. NO S/S OF DISTRESS NOTED ON DC.
[2016-12-14 02:45] VITALS: BP 109/69
--- NOTE | 2016-12-14 02:45 | NUR ---
[id number] Addendum: 12/14/16 at 0531 by Mariajose Casillas LVN THIS IS TOPOGRAPHICAL ERROR.
--- NOTE | 2016-12-14 02:45 | NUR ---
Patient's Plan of Care was discussed and reviewed with MEDICAL TECHNOLOGIST GENERALIST: BART
--- NOTE | 2016-12-14 02:45 | NUR ---
Admitted from ER TO TELEMETRY UNIT, with chief complaint of ABDOMINAL PAIN,85 y/o ,Male, Cooperative, AWAKE, A/OX4, AMBULATING WITH A CANE, DJIBOUTIAN SPEAKING. ACCESS COMPOSITE BOND TECHNICIAN LENI, #[id number]. IV SALINE LOCK AT THE RIGHT FOREARM G 20, PATENT AND INTACT. ABDOMINAL PAIN STARTED YESTERDAY AFTERNOON, PAIN 5/0 BUT DENIES PAIN AT THIS TIME 0/10, WAS MEDICATED IN ER WITH TORADOL. WITH ACTIVE BOWEL SOUNDS IN ALL QUADRANTS, ABDOMEN APPEARS DISTENDED, SEEMS GASSY. STATED HIS LAST BM WAS TWO DAYS AGO. HEAD TO TOE ASSESSMENT DONE WITH CHARGE NURSE ELENA, SKIN INTACT. NPO EXCEPT MEDS. oriented to call light, bed, phone,television, bathroom, smoking policy,visiting hours, procedures, ID bracelet on. Belongings list checked.
[2016-12-14 02:47] LABS: PROTHROMBIN TIME 11.8 secs (10.8-13.4)
--- NOTE | 2016-12-14 02:47 | NUR ---
ATTEMPTED TO NOTIFIED FAMILY VIA PHONE OF PT'S ADMISSION BUT N/A.
[2016-12-14 03:00] LABS: CHOL/HDL RATIO 2.7 (1-4.5); FREE T4 (FREE THYROXINE) 1.09 ng/dL (0.76-1.46); MAGNESIUM 2.2 mg/dL (1.8-2.4); PHOSPHORUS 4.1 mg/dL (2.5-4.9); THYROID STIMULATING HORMONE 0.89 uIU/mL (0.34-3.74)
[2016-12-14] MEDS ORDERED: NITROGLYCERIN 0.4 MG TAB SL PRN (03:15)
[2016-12-14 03:28] LABS: APPEARANCE,URINE SL CLOUDY (CLEAR); BILIRUBIN,URINE NEGATIVE (NEGATIVE); BLOOD, URINE TRACE-I (NEGATIVE); COLOR,URINE YELLOW (YELLOW); LEUKOCYTE ESTERASE ,URINE NEGATIVE (NEGATIVE); NITRITE, URINE NEGATIVE (NEGATIVE); UGLUCOSE NEGATIVE (NEGATIVE)
[2016-12-14 03:30] LABS: WBC,URINE 0-3 /HPF (0-5)
[2016-12-14] MEDS ORDERED: ceFAZolin 1,000 MG VIAL ONE (04:04)
[2016-12-14] MEDS ORDERED: METO25TE2 PO (05:11)
[2016-12-14] MEDS ORDERED: RIVA20TA PO (05:11)
[2016-12-14 06:20] LABS: BASOPHILS # (AUTO) 0.3 K/uL (0.00-0.22); BASOPHILS % (AUTO) 2.7 % (0.0-2.0); EOSINOPHILS # (AUTO) 0.3 K/uL (0-0.4); EOSINOPHILS % (AUTO) 2.5 % (0.0-4.0); HEMATOCRIT 39.7 % (36-52); HEMOGLOBIN 12.4 g/dL (12.0-18.0); LYMPHOCYTES # (AUTO) 0.6 K/uL (2.0-11.5); LYMPHOCYTES % (AUTO) 5.8 % (20.5-51.1); MEAN CORPUSCULAR HEMOGLOBIN 30 pg (27-31); MEAN CORPUSCULAR HGB CONC 31 g/dL (33-37); MEAN CORPUSCULAR VOLUME 96 fL (80-94); MONOCYTES # (AUTO) 0.7 K/uL (0.8-1.0); MONOCYTES % (AUTO) 6.6 % (1.7-9.3); NEUTROPHILS # (AUTO) 8.9 K/uL (1.8-7.7); NEUTROPHILS % (AUTO) 82.4 % (42.2-75.2); PLATELET COUNT (AUTO) 258 K/uL (140-450); RED BLOOD CELL COUNT(AUTO) 4.16 MIL/uL (4.20-6.10)
[2016-12-14 06:37] LABS: ANION GAP 10.6 (8-16); CHLORIDE 106 mmol/L (98-107); CREATININE 0.9 mg/dL (0.7-1.3); GLUCOSE 165 mg/dL (74-106); POTASSIUM 3.6 mmol/L (3.5-5.1); SODIUM SERUM 142 mmol/L (136-145); UREA NITROGEN, BLOOD 20 mg/dL (7-18)
[2016-12-14 06:42] LABS: MAGNESIUM 2.2 mg/dL (1.8-2.4); PHOSPHORUS 3.9 mg/dL (2.5-4.9)
[2016-12-14 06:51] LABS: PROTHROMBIN TIME 11.8 secs (10.8-13.4)
[2016-12-14 07:09] LABS: WHITE BLOOD COUNT (AUTO) 10.8 K/uL (4.8-10.8)
--- NOTE | 2016-12-14 07:30 | NUR ---
RECEIVED PT IN BED. AWAKE. ALERT ORIENTED X4. NO SOB NOTED. DENIES ANY PAIN OR DISCOMFORT AT THIS TIME. APPAREL SALES LEADER AT BEDSIDE, ULTRASOUND IN PROCESS. FRISIAN SPEAKING ONLY. PT KEPT ON NPO EXCEPT MEDS. PT AMBULATORY WITH CANE. SAFETY PRECAUTION IN PLACE. CALL LIGHT WITHIN REACH.
[2016-12-14 08:00] VITALS: BP 94/65
--- NOTE | 2016-12-14 08:45 | NUR ---
HELD PATIENTS BLOOD PRESSURE MEDICATIONS AT THIS TIME, METOPROLOL AND ZESTRIL, DUE TO BLOOD PRESSURE OF 94/65. PT ON TELE MONITOR, WILL CONTINUE TO MONITOR BLOOD PRESSURE.
[2016-12-14] MEDS: DOCUSATE SODIUM 100 MG GELCAP PO SCH ×2 (08:51→21:00)
[2016-12-14] MEDS: ASPIRIN 81 MG TAB.CHEW PO SCH (08:51)
[2016-12-14] MEDS: PANTOPRAZOLE 40 MG INJ VIAL IVP SCH (08:51)
[2016-12-14] MEDS: LACTOBACILLUS RHAMNOSUS GG 1 EACH CAP PO SCH (08:52)
[2016-12-14] MEDS: HYDROcodone/APAP 7.5/325 MG 1 TAB PO PRN (08:52)
[2016-12-14] MEDS: METOPROLOL SUCCINATE 50 MG TABER PO SCH (08:55)
[2016-12-14] MEDS: LISINOPRIL 5 MG TAB PO SCH (08:56)
[2016-12-14] MEDS ORDERED: METOPROLOL SUCCINATE 50 MG TABER PO SCH (09:00)
[2016-12-14] MEDS ORDERED: METOPROLOL 25 MG TAB PO SCH (09:00)
--- NOTE | 2016-12-14 09:25 | NUR ---
FAXED INITIAL REVIEW TO [facility] [phone] PHONE [phone] X MARILEE Marin
--- NOTE | 2016-12-14 09:47 | NUR ---
PT VERBALIZED HE IS STILL IN A LOT OF PAIN ON HIS ABDOMEN AFTER PRN PAIN MEDICATION WAS GIVEN. DR. COFFMAN MADE AWARE WITH NEW ORDERS TO PUT IN AND TO CARRIED OUT.
[2016-12-14] MEDS: KETOROLAC 30 MG/ML VIAL IVP PRN (09:57)
--- NOTE | 2016-12-14 10:15 | NUR ---
SPOKE WITH DR. SÁNCHEZ REGARDING PATIENTS LABS AND US RESULTS.
--- NOTE | 2016-12-14 11:27 | NUR ---
PAGED DR. COFFMAN AND MADE AWARE OF SCHEDULED LAPAROSCOPIC CHOLECYSTECTOMY. . TO PUT IN ORDER FOR OBTAIN CONSENT.
--- NOTE | 2016-12-14 11:33 | NUR ---
PATIENT HAS BEEN SCREENED AND CATEGORIZED MODERATE NUTRITION RISK. PATIENT WILL BE SEEN WITHIN 3-5 DAYS OF ADMISSION. 12/16/16-12/18/[address]
--- NOTE | 2016-12-14 11:45 | NUR ---
DR. LARES CALLED BACK HE SAID THAT HE WILL BE HERE IN THE NEXT COUPLE OF HOURS TO SEE PT Addendum: 12/14/16 at 1205 by Ramya Baez RN DISREGARD ABOVE DOCUMENTATION WRONG PT.
[2016-12-14 12:00] VITALS: BP 108/61
--- NOTE | 2016-12-14 12:06 | NUR ---
DR. COFFMAN PUT IN AN ORDER TO OBTAIN CONSENT FOR THE LAPAROSCOPIC CHOLECYSTECTOMY. DR. COFFMAN CAME TO SEE PT. AND EXPLAINED PROCEDURE. PT VERBALIZED UNDERSTANDING AND SIGNED CONSENT. FAMILY NIALLINA AWARE OF SURGERY.
--- NOTE | 2016-12-14 12:17 | NUR ---
CALLED PHARMACY SPOKE WITH KARAN MADE AWARE THAT PT IS GOING TO OR FOR A PROCEDURE AND HAS A DUE ANCEF AT 1300, AND TO HAVE MEDICATION SENT TO OR.
--- NOTE | 2016-12-14 12:18 | NUR ---
AMARA ATKINS CAME TO [facility] PT FOR PROCEDURE. PROVIDED WITH CONSENT, AND TICKET TO RIDE. PT NO SOB NOTED AT THIS TIME. DENIES ANY PAIN OR DISCOMFORT AT THIS TIME. PT TRANSFERRED TO OR ON STABLE CONDITION.
--- NOTE | 2016-12-14 12:22 | NUR ---
BLESSING MALONEY RN MADE AWARE THAT ASPIRIN 81 MG PO WAS GIVEN AT 0900. DUE TO NO ORDER FOR POSSIBLE SURGERY WAS POSTED AT THAT TIME.
--- NOTE | 2016-12-14 12:30 | NUR ---
WENT WITH OR STAFF TO ADD TO SURGICAL CONSENT. TO BE: LAPAROSCOPIC CHOLECYSTECTOMY, POSSIBLE OPEN CHOLECYSTECTOMY, POSSIBLE CHOLEANGIOGRAM.
[2016-12-14] MEDS ORDERED: DEXAMETHASONE 4 MG/ML VIAL ONE (12:35)
[2016-12-14] MEDS ORDERED: PROPOFOL 200 MG/20 ML VIAL IV ONE (12:35)
[2016-12-14] MEDS ORDERED: ONDANSETRON 4 MG/2 ML VIAL ONE (12:35)
[2016-12-14] MEDS ORDERED: GLYCOPYRROLATE 0.2 MG/ML VIAL ONE (12:35)
[2016-12-14] MEDS ORDERED: ROCURONIUM 50 MG/5 ML VIAL IV ONE (12:35)
[2016-12-14] MEDS ORDERED: DESFLURANE 240 ML BTL INH ONE (12:35)
[2016-12-14] MEDS ORDERED: NEOSTIGMINE 1:1000 10 MG/10 ML VIAL ONE (12:35)
[2016-12-14] MEDS ORDERED: SUCCINYLCHOLINE CHLORIDE 200 MG/10 ML VIAL IVP ONE (12:35)
[2016-12-14] MEDS: BUPIVACAINE-MPF/EPI 0.25% 10 ML VIAL INJ ONE (12:42)
[2016-12-14] MEDS ORDERED: MEPERIDINE 25 MG/ML SYR ONE (13:04)
[2016-12-14] MEDS ORDERED: MIDAZOLAM 2 MG/2 ML VIAL ONE (13:04)
[2016-12-14] MEDS ORDERED: fentaNYL 0.05 MG/ML VIAL ONE (13:04)
[2016-12-14] MEDS ORDERED: HYDROmorphone 1 MG/ML AMP IVP PRN ×2 (14:15→19:00)
[2016-12-14] MEDS: HYDROmorphone PFS 2 MG/ML SYR ONE ×3 (15:35→15:55)
[2016-12-14 15:57] LABS: BASOPHILS # (AUTO) 0.2 K/uL (0.00-0.22); EOSINOPHILS # (AUTO) 0.2 K/uL (0-0.4); EOSINOPHILS % (AUTO) 1.7 % (0.0-4.0); HEMATOCRIT 40.3 % (36-52); HEMOGLOBIN 12.6 g/dL (12.0-18.0); LYMPHOCYTES # (AUTO) 0.6 K/uL (2.0-11.5); LYMPHOCYTES % (AUTO) 6.3 % (20.5-51.1); MEAN CORPUSCULAR HEMOGLOBIN 30 pg (27-31); MEAN CORPUSCULAR HGB CONC 31 g/dL (33-37); MEAN CORPUSCULAR VOLUME 96 fL (80-94); MONOCYTES # (AUTO) 0.1 K/uL (0.8-1.0); MONOCYTES % (AUTO) 0.6 % (1.7-9.3); NEUTROPHILS # (AUTO) 8.8 K/uL (1.8-7.7); NEUTROPHILS % (AUTO) 89.4 % (42.2-75.2); PLATELET COUNT (AUTO) 270 K/uL (140-450); RED BLOOD CELL COUNT(AUTO) 4.22 MIL/uL (4.20-6.10); RED CELL DISTRIBUTION WIDTH 14.4 % (11.6-13.7); WHITE BLOOD COUNT (AUTO) 9.9 K/uL (4.8-10.8)
[2016-12-14 16:08] LABS: ALBUMIN 2.4 g/dL (3.4-5.0); ASPARTATE AMINOTRANSFERASE 385 U/L (15-37); CARBON DIOXIDE 29.5 mmol/L (21-32); CHLORIDE 106 mmol/L (98-107); CREATININE 0.8 mg/dL (0.7-1.3); GLUCOSE 137 mg/dL (74-106); POTASSIUM 4.5 mmol/L (3.5-5.1); SODIUM SERUM 141 mmol/L (136-145); TOTAL BILIRUBIN 2.5 mg/dL (0.0-1.0); UREA NITROGEN, BLOOD 16 mg/dL (7-18)
[2016-12-14 16:15] VITALS: BP 113/74
--- NOTE | 2016-12-14 16:24 | NUR ---
RECEIVED PT IN BED. AWAKE. ALERT ORIENTED X4. NO SOB NOTED. DENIES ANY PAIN OR DISCOMFORT AT THIS TIME. ASSISTED BY OR NURSE ANDRES. PT HAS 5 BANDAID ON HIS ABDOMEN. AND 1 4X4 DRESSING ON THE SUJATA DRAIN ON PTS RIGHT ANTERIOR ABDOMEN. BLOOD NOTED ON THE 4X4 DRESSING. DR. COFFMAN CAME TO SEE PT AND WAS INFORMED ABOUT THE SOAKED DRESSING. ANDRES RN TO BRING MATERIALS FOR CHANGING THE SUJATA DRAIN DRESSING. PT KEPT CLEAN, AND COMFORTABLE. VITAL SIGNS TAKEN.
[2016-12-14 16:30] VITALS: BP 108/78
--- NOTE | 2016-12-14 16:30 | NUR ---
ANDRES ATKINS CAME BACK TO CHANGE THE ABDOMINAL DRESSING FOR THE SUJATA DRAIN. SECURED. KEPT CLEAN AND DRY. NO ACTIVE BLEEDING NOTED.
--- NOTE | 2016-12-14 17:52 | NUR ---
RECEIVED A CALL FROM DR. SÁNCHEZ FOR AN ORDER FOR STAT HYDASCAN. DR. RALPH MADE AWARE FOR DR. COFFMAN AND WILL PUT THE ORDER. AND WILL CARRY OUT
[2016-12-14] MEDS: PIPER/TAZO 3.375GM/D5W PREMIX 50 ML IV SCH (18:02)
--- NOTE | 2016-12-14 18:57 | NUR ---
RECEIVED A CALL FROM RADIOLOGY DEPARTMENT [facility], REGARDING NUCLEAR MED WILL COME HERE AT AROUND 11-12MN FOR RISSA, AND NEEDS TO KEEP PT NPO AND NO PAIN MEDS FOR 6 HOURS. WILL LET NIGHT NURSE KNOW.
--- NOTE | 2016-12-14 19:31 | NUR ---
PT KEPT CLEAN, DRY AND COMFORTABLE, NEEDS ATTENDED, ENDORSED TO NEXT SHIFT ON STABLE CONDITION FOR CONTINUITY OF CARE. ENDORSED TO NEXT SHIFT REGARDING HIDASCAN ORDER AND KEEP PT ON NPO AND NOT TO GIVE PAIN MEDICATION TILL THE NUCLEAR MED COMES AT 11PM-12MN. FAMILY OF PT AT BEDSIDE.
--- NOTE | 2016-12-14 19:33 | NUR ---
RECD. RESTING IN BED, AWAKE, A/OX4. RESPIRATION EVEN AND UNLABORED. IV OF NS INFUSING AT 115, RIGHT FOREARM G20. S/P LAP CHOLECYSTECTOMY. INCISION IN THE ABDOMEN (5) COVERED WITH BAND AID DRESSING, ALL DRY AND INTACT. WITH 1 SUJATA DRAINING MODERATE AMOUNT OF PINKISH YELLOWISH FLUID. ON BILATERAL LEG SEQUENTIALS. PLAN OF CARE FOR THE SHIFT DISCUSSED. VERBALIZED UNDERSTANDING. PAIN IN THE ABDOMEN 04/27, WILL MEDICATE ORDERED. FAMILY AT THE BEDSIDE.
[2016-12-14 20:00] VITALS: BP 107/69
--- NOTE | 2016-12-14 20:00 | NUR ---
Patient's Plan of Care was discussed and reviewed with REVOLVING INVENTORY CLERK: BART
[2016-12-14] MEDS: ATORVASTATIN 20 MG TAB PO SCH (21:00)
--- NOTE | 2016-12-14 22:15 | NUR ---
HIDA SCAN TECH CAME, WILL DO THE PROCEDURE. PATIENT RESTING IN BED.
--- NOTE | 2016-12-14 22:30 | NUR ---
TECH FINISHED, WILL BE BACK IN AN HOUR FOR THE SECOND TEST, PATIENT CAN BE GIVEN PAIN MEDICATION.
[2016-12-15] VITALS (7 sets, daily range): BP systolic 90–130; BP diastolic 53–92
[2016-12-15] MEDS: KETOROLAC 30 MG/ML VIAL IVP PRN ×3 (00:09→23:51)
[2016-12-15] MEDS: PIPER/TAZO 3.375GM/D5W PREMIX 50 ML IV SCH ×5 (00:09→23:31)
--- NOTE | 2016-12-15 02:00 | NUR ---
DR. SÁNCHEZ CALLED INQUIRING ON THE RESULT OF THE HIDA SCAN. WILL FOLLOW UP WITH RESULT.
--- NOTE | 2016-12-15 02:15 | NUR ---
FOLLOW UP WITH SAVANNAH OF RADIOLOGY, TEST WILL BE READ IN TEN MINUTES.
--- NOTE | 2016-12-15 02:35 | NUR ---
READ TO DR. SÁNCHEZ RESULT OF HIDA SCAN TEST. DR. Nestor RODRIGUES WILL SEE PATIENT TOMORROW AND WILL DECIDE IF ERCP WILL BE DONE.
[2016-12-15 05:46] LABS: BASOPHILS # (AUTO) 0.1 K/uL (0.00-0.22); BASOPHILS % (AUTO) 0.7 % (0.0-2.0); EOSINOPHILS # (AUTO) 0.2 K/uL (0-0.4); EOSINOPHILS % (AUTO) 1.4 % (0.0-4.0); HEMATOCRIT 38.3 % (36-52); HEMOGLOBIN 12.8 g/dL (12.0-18.0); LYMPHOCYTES # (AUTO) 0.4 K/uL (2.0-11.5); MEAN CORPUSCULAR HEMOGLOBIN 32 pg (27-31); MEAN CORPUSCULAR HGB CONC 34 g/dL (33-37); MEAN CORPUSCULAR VOLUME 95 fL (80-94); MONOCYTES # (AUTO) 0.6 K/uL (0.8-1.0); MONOCYTES % (AUTO) 4.3 % (1.7-9.3); NEUTROPHILS % (AUTO) 90.6 % (42.2-75.2); PLATELET COUNT (AUTO) 249 K/uL (140-450); RED BLOOD CELL COUNT(AUTO) 4.01 MIL/uL (4.20-6.10); RED CELL DISTRIBUTION WIDTH 13.6 % (11.6-13.7); WHITE BLOOD COUNT (AUTO) 14.3 K/uL (4.8-10.8)
[2016-12-15] MEDS ORDERED: SIMETHICONE 40 MG/0.6 ML PO SCH (06:00)
--- NOTE | 2016-12-15 06:00 | NUR ---
EMPTY SUJATA, 40 ML OF YELLOWISH FLUID, NOTED PINKISH ROUND THING INSIDE SUJATA, CHARGE NURSE AWARE, WILL ENDORSE TO AM NURSE.
[2016-12-15 06:16] LABS: ALBUMIN 2.4 g/dL (3.4-5.0); ANION GAP 11.3 (8-16); ASPARTATE AMINOTRANSFERASE 183 U/L (15-37); CARBON DIOXIDE 27.3 mmol/L (21-32); CHLORIDE 106 mmol/L (98-107); GLUCOSE 123 mg/dL (74-106); POTASSIUM 4.6 mmol/L (3.5-5.1); SODIUM SERUM 140 mmol/L (136-145); TOTAL BILIRUBIN 1.6 mg/dL (0.0-1.0); UREA NITROGEN, BLOOD 19 mg/dL (7-18)
--- NOTE | 2016-12-15 06:55 | NUR ---
VINNY FISHER, INFORMED RESIDENT ON DUTY, DR. COFFMAN. WILL FOLLOW UP ORDERS.
--- NOTE | 2016-12-15 07:00 | NUR ---
CONDITION REMAIN STABLE. WILL ENDORSE TO AM NURSE FOR CONTINUITY OF CARE.
[2016-12-15] MEDS: BUPIVACAINE-MPF/EPI 0.25% 10 ML VIAL INJ ONE (07:11)
--- NOTE | 2016-12-15 07:30 | NUR ---
RECEIVED PT IN BED. AWAKE. ALERT ORIENTEDX4. NO SOB NOTED. DENIES ANY PAIN OR DISCOMFORT AT THIS TIME. SUJATA DRAIN IN PLACE. NO ACTIVE BLEEDING NOTED ON THE AREA. PT AMBULATORY WITH ASSIST. SAFETY PRECAUTION IN PLACE. CALL LIGHT WITHIN REACH.
--- NOTE | 2016-12-15 07:58 | NUR ---
DR. SÁNCHEZ CAME TO SEE PT.
--- NOTE | 2016-12-15 07:58 | NUR ---
SUJATA DRAIN DRESSING CHANGED. GOOD SKIN CARE PROVIDED.
[2016-12-15] MEDS: LISINOPRIL 5 MG TAB PO SCH (09:00)
[2016-12-15] MEDS: METOPROLOL SUCCINATE 50 MG TABER PO SCH (09:00)
[2016-12-15] MEDS: ASPIRIN 81 MG TAB.CHEW PO SCH (09:00)
--- NOTE | 2016-12-15 09:18 | NUR ---
DUE ASPIRIN HELD DUE TO POSSIBLE SURGERY TODAY FOR POSSIBLE ERCP BY DR. RODRIGUES
[2016-12-15] MEDS: PANTOPRAZOLE 40 MG INJ VIAL IVP SCH (09:29)
[2016-12-15] MEDS: NACL 0.9% 1,000 ML IV SCH ×2 (09:29→17:37)
[2016-12-15] MEDS: HYDROmorphone 1 MG/ML AMP IVP PRN (09:29)
[2016-12-15] MEDS: DOCUSATE SODIUM 100 MG GELCAP PO SCH ×2 (09:29→20:13)
[2016-12-15] MEDS: LACTOBACILLUS RHAMNOSUS GG 1 EACH CAP PO SCH (09:30)
--- NOTE | 2016-12-15 11:19 | NUR ---
FAXED CONCURRENT REVIEW TO [facility] [phone] PHONE [phone] [id number], MARILEE
[2016-12-15] MEDS ORDERED: LACTULOSE 20 GM/30 ML UDC PO SCH (12:30)
--- NOTE | 2016-12-15 12:32 | NUR ---
DR. COFFMAN MADE AWARE OF PT COMPLAINING OF NOT HAVING A BOWEL MOVEMENT FOR 5 DAYS. AND PT ON COLACE BID. HE SAID HE WILL ADD AN ORDER.
[2016-12-15] MEDS ORDERED: MAGNESIUM HYDROXIDE 2400 MG/30 ML UDC PO SCH (15:34)
--- NOTE | 2016-12-15 16:01 | NUR ---
DR. RODRIGUES CAME TO SEE PT. EXPLAINED TO PT RISKS AND BENEFITS OF ERCP FOR TOMORROW PER RUSSIAN SPEAKING RN. PT VERBALIZED UNDERSTANDING. USED Field Agent [employer] SPOKE WITH YENIFER [id number], TRANSLATED TO PT RISKS AND BENEFITS OF THE PROCEDURE. AND THE NEED FOR INFORMED CONSENT. PT SIGNED INFORMED CONSENT. VERBALIZED UNDERSTANDING. MADE AWARE THAT HE CAN EAT FOR DINNER AND WILL KEEP ON NPO POST MIDNIGHT FOR THE PROCEDURE TOMORROW AM. Addendum: 12/15/16 at 1607 by Ramya Baez RN ADDENDUM: PT WILL HAVE FULL LIQUID DIET FOR DINNER PER DR. RODRIGUES ORDER THEN NPO POST MIDNIGHT
--- NOTE | 2016-12-15 16:04 | NUR ---
INFORMED CONSENT SIGNED FOR ERCP AND IN TO CHART.
--- NOTE | 2016-12-15 18:34 | NUR ---
PT KEPT CLEAN, DRY AND COMFORTABLE, NEEDS ATTENDED. GOOD SKIN CARE PROVIDED. PT ON STABLE CONDITION. WILL ENDORSE TO NEXT SHIFT FOR CONTINUITY OF CARE.
--- NOTE | 2016-12-15 19:35 | NUR ---
RECEIVED PT BEING ASSISTED BACK TO BED FROM SHELLY, TALI, FRISIAN SPEAKING ONLY, VERBALIZED HAD SMALL BM, VITAL SIGNS STABLE, DENIES ANY PAIN, WITH RIGHT SIDE SUJATA DRAIN IN PLACE WITH SMALL LIGHT YELLOW PINKISH DRAINAGE, DRESSING TO ABDOMEN DRY AND INTACT, IVF INFUSING WELL, SAFETY MEASURES IN PLACE, VISITORS AT BEDSIDE, CALL LIGHT WITHIN REACH.
[2016-12-15] MEDS: SENNA 8.6 MG TAB PO SCH (20:13)
[2016-12-15] MEDS: ATORVASTATIN 20 MG TAB PO SCH (20:13)
--- NOTE | 2016-12-15 20:20 | NUR ---
DUE MEDICATION GIVEN, ASSIST IN REPOSITIONING AND OFFLOAD PRESSURE AREAS, ALL NEEDS ATTENDED.
--- NOTE | 2016-12-15 23:58 | NUR ---
PT AWAKE COMPLAINING OF PAIN, VITAL SIGNS STABLE, MEDICATED WITH TORADOL IVP FOR PAIN, SUJATA DRAIN EMPTIED WITH YELLOW DRAINAGE 20ML, INSTRUCTED NPO AFTER MIDNIGHT, IV ANTIBIOTIC INFUSING WELL, CONTINUE TO MONITOR CLOSELY.
[2016-12-16] VITALS: BP 100/62
[2016-12-16] MEDS: NACL 0.9% 1,000 ML IV SCH ×3 (01:11→11:54)
[2016-12-16 04:00] VITALS: BP 103/71
--- NOTE | 2016-12-16 04:00 | NUR ---
PT SLEEPING, EASILY AROUSABLE, VITAL SIGNS STABLE, DENIES ANY PAIN, MAINTAIN ON NPO, IVF INFUSING WELL, MONITORED CLOSELY.
[2016-12-16] MEDS: PIPER/TAZO 3.375GM/D5W PREMIX 50 ML IV SCH ×4 (05:23→23:43)
--- NOTE | 2016-12-16 05:29 | NUR ---
DUE IV ANTIBIOTIC ADMINISTERED, SUJATA DRAIN WITH A TOTAL OF 50ML CLEAR YELLOW DRAINAGE WITH CLEAR SEMISOLID FATTY/MUCOID DRAINAGE NOTED, SUJATA SITE INTACT, NO BLEEDING NOTED, DENIES ANY PAIN.
[2016-12-16 05:49] LABS: BASOPHILS # (AUTO) 0.2 K/uL (0.00-0.22); BASOPHILS % (AUTO) 1.3 % (0.0-2.0); EOSINOPHILS # (AUTO) 0.2 K/uL (0-0.4); HEMATOCRIT 37.6 % (36-52); HEMOGLOBIN 12.5 g/dL (12.0-18.0); LYMPHOCYTES # (AUTO) 0.7 K/uL (2.0-11.5); LYMPHOCYTES % (AUTO) 5.9 % (20.5-51.1); MEAN CORPUSCULAR HEMOGLOBIN 32 pg (27-31); MEAN CORPUSCULAR HGB CONC 33 g/dL (33-37); MEAN CORPUSCULAR VOLUME 96 fL (80-94); MONOCYTES # (AUTO) 0.5 K/uL (0.8-1.0); MONOCYTES % (AUTO) 4.7 % (1.7-9.3); NEUTROPHILS % (AUTO) 86.1 % (42.2-75.2); PLATELET COUNT (AUTO) 265 K/uL (140-450); RED BLOOD CELL COUNT(AUTO) 3.92 MIL/uL (4.20-6.10); RED CELL DISTRIBUTION WIDTH 14.4 % (11.6-13.7)
[2016-12-16 06:11] LABS: ANION GAP 9.6 (8-16); CARBON DIOXIDE 29.7 mmol/L (21-32); CHLORIDE 109 mmol/L (98-107); CREATININE 1.2 mg/dL (0.7-1.3); GLUCOSE 83 mg/dL (74-106); POTASSIUM 4.3 mmol/L (3.5-5.1); SODIUM SERUM 144 mmol/L (136-145); UREA NITROGEN, BLOOD 20 mg/dL (7-18)
[2016-12-16 06:17] LABS: PHOSPHORUS 3.6 mg/dL (2.5-4.9)
[2016-12-16 06:20] LABS: ALBUMIN 2.2 g/dL (3.4-5.0); BILIRUBIN,DIRECT 0.4 mg/dL (0.0-0.3)
--- NOTE | 2016-12-16 07:10 | NUR ---
PT SLEEPING, NO SIGNS OF DISTRESS, REPORT GIVEN TO WILBERT ESTRADA FOR CONTINUITY OF CARE.
[2016-12-16 07:11] LABS: WHITE BLOOD COUNT (AUTO) 11.6 K/uL (4.8-10.8)
--- NOTE | 2016-12-16 07:20 | NUR ---
RECEIVED PT IN BED. ASLEEP. AROUSABLE TO VOICE. ALERT ORIENTED X4. NO SOB NOTED. THAD ANY PAIN OR DISCOMFORT AT THIS TIME. DRESSING DRY AND INTACT. SUJATA DRAIN IN PLACE. DRAINING CLEAR YELLOW DRAINAGE. PT AMBULATORY WITH ASSIST. SAFETY PRECAUTION IN PLACE. CALL LIGHT WITHIN REACH.
[2016-12-16] MEDS: KETOROLAC 30 MG/ML VIAL IVP PRN ×3 (07:56→22:44)
[2016-12-16 08:00] VITALS: BP 105/65
--- NOTE | 2016-12-16 08:14 | NUR ---
CHECKED DRESSING AT THE SUJATA DRAIN SITE, DRESSING WET INSIDE THE BANDAGE, LIGHT YELLOW IN COLOR. DRESSING CHANGED AND SECURED. SUJATA DRAINED 10 ML OF YELLOWISH DRAINAGE. GOOD SKIN CARE PROVIDED.
[2016-12-16] MEDS: ASPIRIN 81 MG TAB.CHEW PO SCH (09:00)
[2016-12-16] MEDS: METOPROLOL SUCCINATE 50 MG TABER PO SCH (09:00)
[2016-12-16] MEDS: LISINOPRIL 5 MG TAB PO SCH (09:00)
[2016-12-16] MEDS: LACTOBACILLUS RHAMNOSUS GG 1 EACH CAP PO SCH (09:00)
[2016-12-16] MEDS: DOCUSATE SODIUM 100 MG GELCAP PO SCH ×2 (09:00→20:38)
[2016-12-16] MEDS: PANTOPRAZOLE 40 MG INJ VIAL IVP SCH (09:12)
--- NOTE | 2016-12-16 10:07 | NUR ---
CALLED OPERATING ROOM TO FOLLOW UP REGARDING ERCP PROCEDURE SCHEDULED AT 1000. ACCORDING TO OR STAFF THEY ALREADY PAGED DR. RODRIGUES, AND AWAITING CALL BACK.
--- NOTE | 2016-12-16 10:36 | NUR ---
ASSESSED PT'S SUJATA DRAIN, NOTICED PREVIOUSLY CHANGED DRESSING ALREADY SOAKED, WITH YELLOWISH DRAINAGE. REMOVED OLD DRESSING, SOME LEAKING NOTED ON SUJATA DRAIN SITE. CALLED DR. SÁNCHEZ'S OFFICE [phone]. SPOKE WITH ED, AND PAGED DR. SÁNCHEZ. AWAITING CALL BACK.
--- NOTE | 2016-12-16 10:46 | NUR ---
DR. SÁNCHEZ CALLED BACK AND MADE AWARE THAT THE SUJATA DRAIN SITE IS LEAKING FROM THE SKIN. MD ASKED FOR RECENT HGB AND HCT LEVELS FROM YESTERDAY AND TODAY, BILIRUBIN LEVELS, AND AST,ALT. AND MADE AWARE STILL AWAITING FOR DR. RODRIGUES FOR ERCP. MADE AWARE OF SUJATA DRAIN OUTPUT. ACCORDING TO DR. SÁNCHEZ JUST CHANGE DRESSING AND LET HIM KNOW ABOUT THE RESULT OF ERCP. PT KEPT CLEAN DR. AND COMFORTABLE. GOOD SKIN CARE PROVIDED.
[2016-12-16 12:00] VITALS: BP 95/64
--- NOTE | 2016-12-16 12:00 | NUR ---
DR. RODRIGUES CAME TO SEE PT. RESIDENT TO PUT IN ORDERS.
--- NOTE | 2016-12-16 12:25 | NUR ---
CM NOTE CONCURRENT REVIEW TO [facility] / FAX# [phone], ATTN: MARILEE #[phone] [id number]
[2016-12-16] MEDS ORDERED: MAGNESIUM CITRATE 300 ML BTL PO SCH (14:29)
--- NOTE | 2016-12-16 14:50 | NUR ---
DR. SÁNCHEZ CAME TO SEE PT, WITH ORDERS MADE AND CARRIED OUT. RESIDENT TO PUT ORDERS FOR ERCP TOMORROW. MADE AWARE OF SUJATA DRAIN LEAKING. HE SAID TO JUST KEEP SITE CLEAN AND DRY AND CHANGE DRESSING.
[2016-12-16] MEDS: DEXT 5% / NACL 0.45% 1,000 ML IV SCH ×2 (14:57→23:12)
[2016-12-16 16:00] VITALS: BP 101/71
--- NOTE | 2016-12-16 17:02 | NUR ---
DR. CASTRO CAME TO SEE PT AND MADE AWARE OF RECENT BLOOD PRESSURE READINGS AND EKG. PT ASLEEP AT THIS TIME. NO SOB OR SIGNS OF ACUTE DISTRESS NOTED AT THIS TIME.
--- NOTE | 2016-12-16 17:57 | NUR ---
PT AMBULATED WITH STAND BY ASSIST GOING TO THE BATHROOM. PT HAD LARGE BOWEL MOVEMENT. NO SOB NOTED. DENIES ANY PAIN OR DISCOMFORT AT THIS TIME.
--- NOTE | 2016-12-16 17:58 | NUR ---
PT TOLERATED WELL HIS REGULAR DIET. NO SOB OR COUGHING NOTED.
--- NOTE | 2016-12-16 18:45 | NUR ---
IV CANNULA ACCIDENTALLY PULLED OUT WHEN PT AMBULATED TO THE BATHROOM. REINSERTED G22 ON PT'S RIGHT FOREARM.
--- NOTE | 2016-12-16 19:20 | NUR ---
PT KEPT CLEAN, DRY AND COMFORTABLE. NEEDS ATTENDED ENDORSED TO NEXT SHIFT ON STABLE CONDITION FOR CONTINUITY OF CARE. FAMILY AT BEDSIDE.
[2016-12-16 20:00] VITALS: BP 95/69
[2016-12-16] MEDS: ATORVASTATIN 20 MG TAB PO SCH (20:38)
[2016-12-16] MEDS: SENNA 8.6 MG TAB PO SCH (20:38)
--- NOTE | 2016-12-16 20:40 | NUR ---
PT AMBULATED TO BR WITH ASSIST, WITH LOOSE BM MIXED WITH FORMED STOOL, NO BLEEDING NOTED, DUE MEDS ADMINISTERED, ALL NEEDS ATTENDED.
--- NOTE | 2016-12-16 21:20 | NUR ---
DRESSING TO SUJATA DRAIN MODERATELY SOAKED WITH LIGHT YELLOW PINKISH DRAINAGE, DRESSING CHANGE DONE, SUJATA DRAIN DRAINING WELL WITH YELLOW DRAINAGE, MONITORED CLOSELY.
--- NOTE | 2016-12-16 23:35 | NUR ---
PT SLEEPING, EASILY AROUSABLE, VITAL SIGNS STABLE, SAT-93% ON ROOM AIR, PUT ON O2 AT 1L/NC, SAT WENT UP TO 96%, SUJATA DRESSING SOAKED, DRESSING CHANGE DONE, SUJATA DRAINING YELLOW ORANGE FLUID, ABDOMEN SLIGHTLY DISTENDED BUT SOFT, POSITIVE BOWEL SOUNDS, NO N/V NOTED, IVF INFUSING WELL, FOR NPO EXCEPT MEDS, SCD'S IN PLACE, CONTINUE TO MONITOR CLOSELY.
[2016-12-17] VITALS: BP 104/70
[2016-12-17] MEDS: HYDROmorphone 1 MG/ML AMP IVP PRN
--- NOTE | 2016-12-17 00:03 | NUR ---
PT AWAKE COMPLAINING OF ABDOMINAL PAIN AND BACK PAIN, ANXIOUS AND CANNOT GOT TO SLEEP, REPOSITION FOR COMFORT, MEDICATED PRN WITH DILAUDID IVP ORDERED, MONITORED CLOSELY.
--- NOTE | 2016-12-17 01:40 | NUR ---
ROUNDED ON PT, SLEEPING, NO SIGNS OF DISTRESS, MONITORED CLOSELY.
[2016-12-17] MEDS: DEXT 5% / NACL 0.45% 1,000 ML IV SCH ×2 (02:09→07:54)
[2016-12-17 04:00] VITALS: BP 91/60
--- NOTE | 2016-12-17 04:00 | NUR ---
PT SLEEPING, AROUSABLE TO TOUCH, VITAL SIGNS STABLE, DENIES ANY PAIN, VOIDING FREELY PER URINAL, REPOSITION FOR COMFORT, MAINTAIN ON NPO FOR ERCP TODAY, MONITORED CLOSELY.
[2016-12-17] MEDS: PIPER/TAZO 3.375GM/D5W PREMIX 50 ML IV SCH ×3 (05:24→17:06)
--- NOTE | 2016-12-17 05:33 | NUR ---
TOTAL SUJATA DRAINAGE OF 25 ML YELLOW ORANGE FLUID, SUJATA SITE STILL LEAKING, DRESSING SOAKED, SUTURE INTACT, DRESSING CHABGE DONE, SITE COVERED WITH GAUZE X3 AND ABD PAD, DENIES ANY PAIN, MAINTAIN ON NPO, IV ANTIBIOTIC ADMINISTERED, MONITORED CLOSELY.
[2016-12-17 05:43] LABS: BASOPHILS # (AUTO) 0.1 K/uL (0.00-0.22); BASOPHILS % (AUTO) 1.4 % (0.0-2.0); EOSINOPHILS # (AUTO) 0.2 K/uL (0-0.4); EOSINOPHILS % (AUTO) 2.5 % (0.0-4.0); HEMOGLOBIN 11.8 g/dL (12.0-18.0); LYMPHOCYTES # (AUTO) 0.7 K/uL (2.0-11.5); LYMPHOCYTES % (AUTO) 8.3 % (20.5-51.1); MEAN CORPUSCULAR HEMOGLOBIN 32 pg (27-31); MEAN CORPUSCULAR HGB CONC 34 g/dL (33-37); MEAN CORPUSCULAR VOLUME 96 fL (80-94); MONOCYTES % (AUTO) 11.5 % (1.7-9.3); NEUTROPHILS % (AUTO) 76.3 % (42.2-75.2); PLATELET COUNT (AUTO) 241 K/uL (140-450); RED BLOOD CELL COUNT(AUTO) 3.66 MIL/uL (4.20-6.10); RED CELL DISTRIBUTION WIDTH 14.1 % (11.6-13.7)
[2016-12-17 06:05] LABS: ALBUMIN 1.9 g/dL (3.4-5.0); ANION GAP 8.7 (8-16); ASPARTATE AMINOTRANSFERASE 127 U/L (15-37); CARBON DIOXIDE 30.2 mmol/L (21-32); CHLORIDE 108 mmol/L (98-107); CREATININE 1.1 mg/dL (0.7-1.3); GLUCOSE 116 mg/dL (74-106); MAGNESIUM 2.1 mg/dL (1.8-2.4); PHOSPHORUS 3.4 mg/dL (2.5-4.9); POTASSIUM 3.9 mmol/L (3.5-5.1); SODIUM SERUM 143 mmol/L (136-145); TOTAL BILIRUBIN 1.1 mg/dL (0.0-1.0); UREA NITROGEN, BLOOD 16 mg/dL (7-18)
--- NOTE | 2016-12-17 07:20 | NUR ---
PT AWAKE, NO SIGNS OF DISTRESS, REPORT GIVEN TO WILBERT CHANEL FOR CONTINUITY OF CARE.
--- NOTE | 2016-12-17 07:25 | NUR ---
RECEIVED PATIENT AT BEDSIDE FROM NIGHT NURSE. PATIENT IS AAOX3, [place] SPEAKER AND SHOW NO S/S OF ACUTE DISTRESS ON O2 2L VIA NC. PATIENT DENIES PAIN. PATIENT HAS 4 ABD INCISIONS FROM S/P LAP KEYSHAWN ON 12/14/16 AND DRESSING FOR SUJATA DRAIN. SUJATA HAS MINIMAL YELLOW DRAINAGE. IV NOTED ON THE R FA WITH IVF'S INFUSING WELL. PATIENT ON TELE MONITOR. PATIENT WAS EDUCATED ON POC FOR TODAY AND VERBALIZED UNDERSTANDING. PATIENT AWARE OF HOW TO USE THE CALL LIGHT FOR NEEDED ASSISTANCE. THE BED IS LOWERED WITH CALL LIGHT WITHIN REACH.
[2016-12-17 08:00] VITALS: BP 95/65
[2016-12-17] MEDS: LACTOBACILLUS RHAMNOSUS GG 1 EACH CAP PO SCH ×2 (08:42→16:42)
[2016-12-17] MEDS: ASPIRIN 81 MG TAB.CHEW PO SCH (08:43)
[2016-12-17] MEDS: PANTOPRAZOLE 40 MG INJ VIAL IVP SCH (08:43)
[2016-12-17] MEDS: METOPROLOL SUCCINATE 50 MG TABER PO SCH (08:43)
[2016-12-17] MEDS: DOCUSATE SODIUM 100 MG GELCAP PO SCH ×2 (08:43→21:03)
[2016-12-17] MEDS: LISINOPRIL 5 MG TAB PO SCH (08:44)
--- NOTE | 2016-12-17 08:50 | NUR ---
ADMINISTERED SCHEDULED MEDICATIONS. PATIENT TOLERATED ACTIVITY WELL. PATIENT SHOWS NO S/S OF ACUTE DISTRESS. PATIENT WAS REPOSITIONED. ALL NEEDS MET AT THIS TIME. THE BED IS LOWERED WITH CALL LIGHT WITHIN REACH. WILL CONTINUE TO MONITOR.
--- NOTE | 2016-12-17 10:50 | NUR ---
PATIENT HAS VISITOR AT BEDSIDE. PATIENT SHOWS NO S/S OF ACUTE DISTRESS. PATIENT DENIES PAIN AT THIS TIME. THE BED IS LOWERED WITH CALL LIGHT WITHIN REACH.
--- NOTE | 2016-12-17 10:55 | NUR ---
FAXED CONCURRENT REVIEW TO [facility] [phone] PHONE [phone] X MARILEE Marin
[2016-12-17] MEDS: KETOROLAC 30 MG/ML VIAL IVP PRN (11:40)
--- NOTE | 2016-12-17 11:40 | NUR ---
PATIENT STATES SHARP ABD PAIN 10/25. ADMINISTERED TORADOL 30 MG IVP. PATIENT IS IN BED AND SHOWS NO S/S OF ACUTE DISTRESS. WILL REASSESS PAIN IN 30 MIN.
--- NOTE | 2016-12-17 12:10 | NUR ---
PATIENT STATES NO ABD PAIN. THE BED IS LOWERED WITH CALL LIGHT WITHIN REACH. WILL CONTINUE TO MONITOR.
--- NOTE | 2016-12-17 12:45 | NUR ---
PATIENT LEFT UNIT IN STABLE CONDITION TO PROCEDURE.
--- NOTE | 2016-12-17 13:45 | NUR ---
12/17/16 RD INITIAL ASSESSMENT COMPLETED PLEASE REFER TO NUTRITION ASSESSMENT UNDER CARE ACTIVITY FOR ESTIMATED NUTRITIONAL NEEDS. 1. WHEN MEDICALLY FEASIBLE, RESUME PO DIET TO START ON CLEAR LIQUID DIET AND ADVANCE TOLERATED TO REGULAR DIET TERESA DIAZ RD
[2016-12-17] MEDS ORDERED: GLUCAGON 1 MG VIAL ONE (13:55)
[2016-12-17] MEDS ORDERED: diphenhydrAMINE 50 MG/ML VIAL IVP PRN (14:30)
[2016-12-17] MEDS ORDERED: ONDANSETRON 4 MG/2 ML VIAL IVP PRN (14:30)
[2016-12-17] MEDS: LACTATED RINGERS 1,000 ML IV SCH (14:30)
--- NOTE | 2016-12-17 15:15 | NUR ---
PATIENT ARRIVED ONTO UNIT AAOX4. PATIENT SHOWS NO S/S OF ACUTE DISTRESS. PATIENT C/O PAIN 6/10 AT INCISION SITES. 5 INCISON DRESSINGS ARE CLEAN DRY AND INTACT. SUJATA HAD 20 CC OF YELLOW DRAINAGE. SUJATA DRESSING WAS CHANGED. DRESSING WAS SATURATED IN YELLOW SANGUINOUS DRAINAGE. APPLIED A DRAIN SPONGE, GAUZE, AND ABD PAD AND SECURED WITH PAPER TAPE. PATIENT TOLERATED ACTIVITY WELL. WILL MEDICATE FOR PAIN.
[2016-12-17 15:42] VITALS: BP 116/74
--- NOTE | 2016-12-17 16:23 | NUR ---
SPOKE WITH DR SÁNCHEZ REGARDING SUJATA DRESSING SATURATED IN YELLOW DRAINAGE. NO NEW ORDERS.
[2016-12-17] MEDS: HYDROcodone/APAP 7.5/325 MG 1 TAB PO PRN (16:42)
--- NOTE | 2016-12-17 17:13 | NUR ---
PATIENT DENIES PAIN AND SHOWS NO S/S OF ACUTE DISTRESS ON O2 2L VIA NC. PATIENT IS AAOX3 AND RESTING COMFORTABLY IN BED. PATIENT NEEDS ARE MET AT THIS TIME. THE BED IS LOWERED WITH CALL LIGHT WITHIN REACH. WILL ENDORSE CONTINUITY OF CARE TO NIGHT NURSE.
--- NOTE | 2016-12-17 19:15 | NUR ---
GAVE REPORT TO NIGHT NURSE AT BEDSIDE. ENDORSED PATIENT IN STABLE CONDITION.
--- NOTE | 2016-12-17 19:41 | NUR ---
RECEIVED HANDOFF REPORT FROM AM RN. PATIENT A&OX4. IV SITE PATENT AND INTACT. DRESSINGS DRY AND INTACT. SUJATA DRAIN PATENT. PATIENT DENIES PAIN. PATIENT ON 2L O2. NO SIGNS AND SYMPTOMS OF ACUTE DISTRESS. SAFETY MEASURES ENSURED. CALL LIGHT WITHIN REACH. WILL CONTINUE TO MONITOR.
[2016-12-17] MEDS ORDERED: SIMETHICONE 40 MG/0.6 ML PO PRN (21:00)
[2016-12-17] MEDS: ATORVASTATIN 20 MG TAB PO SCH (21:01)
[2016-12-17] MEDS: SENNA 8.6 MG TAB PO SCH (21:03)
--- NOTE | 2016-12-17 22:04 | NUR ---
PATIENT SLEEPING. NO SIGNS OR SYMPTOMS OF ACUTE DISTRESS. CALL LIGHT WITHIN REACH. WILL CONTINUE TO MONITOR.
[2016-12-18] VITALS: BP 98/76
[2016-12-18] MEDS: PIPER/TAZO 3.375GM/D5W PREMIX 50 ML IV SCH ×4 (00:43→17:36)
--- NOTE | 2016-12-18 01:13 | NUR ---
PATIENT SLEEPING. NO SIGNS AND SYMPTOMS OF ACUTE DISTRESS. CALL LIGHT WITHIN REACH. WILL CONTINUE TO MONITOR.
--- NOTE | 2016-12-18 04:03 | NUR ---
DRESSING SOILED AND CHANGED. PT WHEEZING ON EXHALE. PT'S HOB RAISED. PT STATES HE IS HAVING DIFFICULTY BREATHING. DR. OBANDO MADE AWARE. WILL CONTINUE TO MONITOR.
[2016-12-18] MEDS ORDERED: IPRATROPIUM 0.02% 0.5 MG/2.5 ML NEBU INH PRN (04:05)
[2016-12-18] MEDS: HYDROcodone/APAP 7.5/325 MG 1 TAB PO PRN ×2 (04:06→20:58)
[2016-12-18] MEDS: LACTATED RINGERS 1,000 ML IV SCH (05:22)
[2016-12-18] MEDS: ALBUTEROL 0.083% 2.5 MG/3 ML NEBU INH SCH ×3 (06:53→19:34)
--- NOTE | 2016-12-18 07:23 | NUR ---
ENDORSED HANDOFF REPORT TO AM RN. PATIENT STABLE. CALL LIGHT WITHIN REACH
--- NOTE | 2016-12-18 07:25 | NUR ---
RECEIVED PATIENT REPORT AT BEDSIDE FROM NIGHT NURSE. PATIENT IS AAOX3 AND SHOWS NO S/S OF ACUTE DISTRESS ON O2 2L. PATIENT HAS NOTED 5 DRESSING ON THE ABD AND SUJATA DRAIN WITH YELLOW ORANGE FLUID. PATIENT DENIES PAIN AT THIS TIME. IV NOTED ON THE R FA WITH IVF'S INFUSING WELL. PATIENT WAS EXPLAINED POC FOR TODAY AND VERBALIZED UNDERSTANDING. PATIENT IS AWARE OF HOW TO USE THE CALL LIGHT FOR ASSISTANCE. THE BED IS LOWERED WITH CALL LIGHT WITHIN REACH.
[2016-12-18 07:42] VITALS: BP 88/60
--- NOTE | 2016-12-18 07:45 | NUR ---
PATIENT BEING SEE BY DR POSEY AND RESIDENTS. PATIENT HAS ABD DISTENTION AND C/O ABD PRESSURE AND FEELING UNCOMFORTABLE. NOTED SUJATA DRAIN HAS YELLOW DRAINAGE WITH POSSIBLE CLOT IN DRAIN. ORDERS FOR CT WITH IV CONTRAST OF THE ABD AND PELVIS. DR EDUCATED PATIENT ON PROCEDURE. PATIENT VERBALIZED UNDERSTANDING. PATIENT IS AWARE AND WILL SIGN CONSENT.
[2016-12-18 07:47] LABS: GLUCOSE 78 mg/dL (74-106); UREA NITROGEN, BLOOD 11 mg/dL (7-18)
[2016-12-18 07:51] LABS: ANION GAP 7.4 (8-16); CARBON DIOXIDE 32.8 mmol/L (21-32); CHLORIDE 108 mmol/L (98-107); POTASSIUM 4.2 mmol/L (3.5-5.1); SODIUM SERUM 144 mmol/L (136-145)
[2016-12-18] MEDS: LISINOPRIL 5 MG TAB PO SCH (09:00)
[2016-12-18] MEDS: METOPROLOL SUCCINATE 50 MG TABER PO SCH (09:00)
[2016-12-18] MEDS ORDERED: SIMETHICONE 40 MG/0.6 ML PO SCH (09:00)
[2016-12-18] MEDS ORDERED: SIMETHICONE 80 MG TAB.CHEW PO SCH (09:10)
[2016-12-18] MEDS: ASPIRIN 81 MG TAB.CHEW PO SCH (09:26)
[2016-12-18] MEDS: DOCUSATE SODIUM 100 MG GELCAP PO SCH ×2 (09:26→20:46)
[2016-12-18] MEDS: PANTOPRAZOLE 40 MG INJ VIAL IVP SCH (09:26)
[2016-12-18] MEDS: LACTOBACILLUS RHAMNOSUS GG 1 EACH CAP PO SCH ×2 (09:26→16:39)
[2016-12-18] MEDS: KETOROLAC 30 MG/ML VIAL IVP PRN (09:26)
--- NOTE | 2016-12-18 09:26 | NUR ---
ADMINISTERED SCHEDULED MEDICATIONS. PATIENT ALSO C/O 7/10 ABD PAIN. ADMINISTERED PRN PAIN MEDICATIONS TORADOL 30 MG IVP. WILL REASSESS PAIN IN 30 MIN.
--- NOTE | 2016-12-18 09:56 | NUR ---
PATIENT DENIES PAIN. THE BED IS LOWERED WITH CALL LIGHT WITHIN REACH.
--- NOTE | 2016-12-18 10:18 | NUR ---
PATIENT LEFT UNIT IN STABLE CONDITION TO PROCEDURE.
--- NOTE | 2016-12-18 10:40 | NUR ---
PATIENT IS BACK ON UNIT AND SHOWS NO S/S OF ACUTE DISTRESS ON O2 2L.
--- NOTE | 2016-12-18 12:15 | NUR ---
PATIENT BEING SEEN BY DR RODRIGUES. PATIENT DENIES PAIN AND SHOWS NO S/S OF ACUTE DISTRESS ON O2 2L .
--- NOTE | 2016-12-18 12:20 | NUR ---
PATIENT BEING SEEN BY DR BOWDEN. PATIENT DENIES PAIN. PATIENT FAMILY AT BEDSIDE. PATIENT SHOWS NO S/S OF ACUTE DISTRESS ON O2 2L. WILL CONTINUE TO MONITOR.
[2016-12-18 13:57] LABS: BASOPHILS # (AUTO) 0.6 K/uL (0.00-0.22); EOSINOPHILS # (AUTO) 0.2 K/uL (0-0.4); EOSINOPHILS % (AUTO) 2.4 % (0.0-4.0); HEMATOCRIT 37.9 % (36-52); HEMOGLOBIN 12.1 g/dL (12.0-18.0); LYMPHOCYTES % (AUTO) 10.9 % (20.5-51.1); MEAN CORPUSCULAR HEMOGLOBIN 31 pg (27-31); MEAN CORPUSCULAR HGB CONC 32 g/dL (33-37); MEAN CORPUSCULAR VOLUME 97 fL (80-94); MONOCYTES # (AUTO) 0.5 K/uL (0.8-1.0); NEUTROPHILS # (AUTO) 7.2 K/uL (1.8-7.7); NEUTROPHILS % (AUTO) 75.6 % (42.2-75.2); PLATELET COUNT (AUTO) 258 K/uL (140-450); RED BLOOD CELL COUNT(AUTO) 3.92 MIL/uL (4.20-6.10); RED CELL DISTRIBUTION WIDTH 14.7 % (11.6-13.7); WHITE BLOOD COUNT (AUTO) 9.5 K/uL (4.8-10.8)
[2016-12-18 14:17] LABS: BASOPHILS % (AUTO) 6.1 % (0.0-2.0)
[2016-12-18] MEDS ORDERED: BISACODYL 5 MG TABEC PO SCH (15:04)
--- NOTE | 2016-12-18 15:10 | NUR ---
DR SÁNCHEZ ALSO ORDERED TO ADVANCE DIET TO REGULAR DIET IN THE AM 12/19/16.
--- NOTE | 2016-12-18 15:10 | NUR ---
SPOKE WITH DR SÁNCHEZ AND NOTIFIED DR OF CT WITH CONTRAST RESULTS. PATIENT HAS 10 CC OF YELLOW ORANGE DRAINAGE FROM SUJATA DRAIN. CHANGED DRESSING AT SUJATA DRAIN SITE. DRESSING WAS SATURATED WITH YELLOW DRAINAGE. DR SÁNCHEZ IS AWARE OF LEAKAGE FROM SUJATA DRAIN SITE. RECEIVED ORDERS TO GIVE DULCOLAX 10 MG PO STAT. WILL PLACE ORDERS. PATIENT HAS FAMILY AT BEDSIDE AND SHOWS NO S/S OF ACUTE DISTRESS.
[2016-12-18 16:00] VITALS: BP 115/58
[2016-12-18] MEDS: RIVAROXABAN 10 MG TAB PO SCH (16:47)
--- NOTE | 2016-12-18 17:30 | NUR ---
SPOKE WITH DR SIEGEL REGARDING PHYSICAL THERAPY FINDINGS OF PATIENT BP DECREASING WHILE PERFORMING THERAPY. PER PHYSICAL THERAPY PATIENT BP SUPINE WAS 94/75, SITTING BP WAS 86/55, STANDING BP WAS 76/53. DR ISEGEL WAS NOTIFIED.
--- NOTE | 2016-12-18 18:20 | NUR ---
PATIENT HAS 20CC OF YELLOW ORANGE DRAINAGE FROM SUJATA DRAIN. DRESSING ON SUJATA SITE WAS CHANGED. ABD INCISION BANDAGES WERE TAKEN OFF WELL. 5 INCISION SITES WITH OSWALD, PLASTERER STUCCO AND SHOWS NO S/S OF INFECTIONS. PATIENT DENIES PAIN.
--- NOTE | 2016-12-18 18:30 | NUR ---
PATIENT BP IS 112/68 HR 98 SUPINE. ASSISTED PATIENT TO AMB ON UNIT. PATIENT AMB WITH ASSISTANCE FROM ROOM 104 TO ROOM 112 AND BACK TO ROOM 108. PATIENT SAT ON CHAIR AND BP WAS ASSESSED AT 129/80 HR 96 AND O2 SAT AT 94% ROOM AIR. PATIENT DENIES PAIN. PATIENT RESPIRATIONS AT 24. PATIENT SAYS HE IS TIRED FROM WALKING. PATIENT DID BURP AND PASS GAS. PATIENT DENIES BM TODAY. PATIENT ENCOURAGED TO USE IS AND SIT IN CHAIR. PATIENT WAS EDUCATED ON USING THE IS 10X QH. PATIENT DID 10 REPETITIONS AT 500 ON IS. PATIENT IS NOW IN BED AND ON O2 2L. PATIENT IS AAOX4 AND SHOWS NO S/S OF ACUTE DISTRESS.
--- NOTE | 2016-12-18 19:31 | NUR ---
PATIENT IS CURRENTLY AWAKE ALERT ORIENTED RESTING IN BED DENIES PAIN AND DISCOMFORT ABD DISTENDED BUT SOFT TO TOUCH PATIENT PASSING GAS SUJATA TO RT SIDE OF ABDOMEN WITH NO DRAINAGE AT THIS TIME.PATIENT CONTINUES TO WEAR SCD'S FOR DVT PROPHALAXIS.NEEDS MET CALL LIGHT WITHIN REACH WILL CONTINUE TO MONITOR.
--- NOTE | 2016-12-18 19:31 | NUR ---
GAVE PATIENT REPORT AT BEDSIDE TO NIGHT NURSE. PATIENT ENDORSED IN STABLE CONDITION.
--- NOTE | 2016-12-18 19:35 | NUR ---
Patient's Plan of Care was discussed and reviewed with CLEANING TECHNICIAN: DOLLY MEDINA
[2016-12-18 20:00] VITALS: BP 111/68
[2016-12-18] MEDS: ATORVASTATIN 20 MG TAB PO SCH (20:46)
[2016-12-18] MEDS: SENNA 8.6 MG TAB PO SCH (20:46)
--- NOTE | 2016-12-18 20:46 | NUR ---
PATIENT IS CURRENTLY RESTING IN BED EDUCATED ON HIS NIGHTIME MEDICATION AND PURPOSE OF HIS MEDS PATIENT VERBALIZES UNDERSTANDING AND TOOK ALL HIS MEDS.WILL CONTINUE TO MONITOR.CALL LIGHT WITHIN REACH. PATIENT WAS ASSISTED TO AMBULATE TO THE BATHROOM SO HE CAN HAVE A BOWEL MOVEMENT BUT ON HIS WAY BACK TO BED PATIENT STATES,"I FEEL DIZZY AND UNSTABLE."PATIENT ASSISTED BACK TO BED AND I PROVIDED HIM WITH A BEDSIDE COMMODE INSTEAD AND AN EXTENSION TUBING SO HE CAN MOVE TO BEDSIDE COMMODE WITH HIS OXYGEN STILL IN PLACE.PATIENT EDUCATED TO CONTINUE TO USE THE BEDSIDE COMMODE AND CALL FOR ASSISTANCE.WILL CONTINUE TO MONITOR.
[2016-12-18] MEDS: SIMETHICONE 80 MG TAB.CHEW PO SCH (20:47)
--- NOTE | 2016-12-18 21:30 | NUR ---
DRESSING TO RT ABDOMEN WHERE SUJATA IS LOCATED WAS CHANGED ITS CURRENTLY SOILED AND WEEPING.NEEDS MET WILL CONTINUE TO MONITOR.
--- NOTE | 2016-12-18 21:45 | NUR ---
PATIENT ASSISTED TO THE BATHROOM AND BACK TO BED BUT PATIENT COMPLAINED OF FEELING A LITTLE DIZZY SO I PROVIDED A BEDSIDE COMMODE FOR THE PATIENT AND ENCOURAGED HIM TO ASK FOR ASSISTANCE PATIENT VERBALIZES UNDERSTANDING.CALL LIGHT WITHIN REACH.
--- NOTE | 2016-12-18 22:00 | NUR ---
PATIENT PROVIDED WITH AN EXTENSION FOR HIS OXYGEN SO HE CAN USE THE BEDSIDE COMMODE.PATIENT CONTINUES TO BE MONITORED PATIENT CONTINUE TO PASS GAS.WILL CONTINUE TO MONITOR.
[2016-12-18 23:01] LABS: PHOSPHORUS 3.3 mg/dL (2.5-4.9)
--- NOTE | 2016-12-19 00:15 | NUR ---
PATIENT RESTING IN BED SLEEPING ON AND OFF NEEDS MET WILL CONTINUE TO MONITOR.
[2016-12-19] MEDS: PIPER/TAZO 3.375GM/D5W PREMIX 50 ML IV SCH ×2 (00:30→05:15)
[2016-12-19 00:45] VITALS: BP 112/76
[2016-12-19] MEDS: ALBUTEROL 0.083% 2.5 MG/3 ML NEBU INH SCH ×3 (01:50→13:34)
--- NOTE | 2016-12-19 02:15 | NUR ---
PATIENT IS CURRENTLY RESTING IN BED NEEDS MET NO COMPLAINS OF PAIN OR DISCOMFORT.CALL LIGHT WITHIN REACH.
--- NOTE | 2016-12-19 04:05 | NUR ---
PATIENT SLEEPING NO SIGNIFICANT CHANGE.
[2016-12-19 04:48] VITALS: BP 119/71
--- NOTE | 2016-12-19 05:45 | NUR ---
DRESSING TO RT SIDE OF ABDOMEN CHANGED CURRENTLY SOILED.OLD DRESSING REMOVED AND SITE WAS CLEANED WITH NORMAL SALINE AND PAT DRY THEN EFRAIN DRESSING APPLIED AND SECURED WELL WITH PAPER TAPE.WILL CONTINUE TO MONITOR.
[2016-12-19] MEDS: HYDROcodone/APAP 7.5/325 MG 1 TAB PO PRN (05:54)
[2016-12-19 06:45] LABS: BASOPHILS # (AUTO) 0.1 K/uL (0.00-0.22); BASOPHILS % (AUTO) 1.3 % (0.0-2.0); EOSINOPHILS # (AUTO) 0.3 K/uL (0-0.4); HEMATOCRIT 40.1 % (36-52); HEMOGLOBIN 13.2 g/dL (12.0-18.0); LYMPHOCYTES # (AUTO) 1.1 K/uL (2.0-11.5); LYMPHOCYTES % (AUTO) 12.2 % (20.5-51.1); MEAN CORPUSCULAR HEMOGLOBIN 32 pg (27-31); MEAN CORPUSCULAR HGB CONC 33 g/dL (33-37); MEAN CORPUSCULAR VOLUME 96 fL (80-94); MONOCYTES # (AUTO) 0.9 K/uL (0.8-1.0); MONOCYTES % (AUTO) 10.5 % (1.7-9.3); NEUTROPHILS # (AUTO) 6.3 K/uL (1.8-7.7); PLATELET COUNT (AUTO) 317 K/uL (140-450); RED BLOOD CELL COUNT(AUTO) 4.19 MIL/uL (4.20-6.10); RED CELL DISTRIBUTION WIDTH 13.9 % (11.6-13.7); WHITE BLOOD COUNT (AUTO) 8.7 K/uL (4.8-10.8)
--- NOTE | 2016-12-19 07:10 | NUR ---
PATIENT IS CURRENTLY RESTING IN BED RESPIRATORY THERAPIST JOSEPH AT BEDSIDE.PATIENT DENIES PAIN SUJATA EMPTIED ONLY 2ML OF SEROUS DRAINAGE EMPTIED.CALL LIGHT WITHIN REACH WILL CONTINUE TO MONITOR.
--- NOTE | 2016-12-19 07:10 | NUR ---
REPORT ENDORSED TO WILBERT OLIVO SHE WILL RESUME CARE OF THE PATIENT.
--- NOTE | 2016-12-19 07:15 | NUR ---
RECEIVED PATIENT REPORT AT BEDSIDE FROM NIGHT NURSE. PATIENT IS AAOX3 AND SHOWS NO S/S OF ACUTE DISTRESS ON O2 2L. PATIENT HAS NOTED 5 INCISION ON THE ABD AND SUJATA DRAIN WITH YELLOW ORANGE FLUID. PATIENT DENIES PAIN AT THIS TIME. IV NOTED ON THE R FA SL. PATIENT STATES LBM 3X LAST NIGHT 12/18/16. PATIENT ABD IS SOFT, FIRM, DISTENDED. DR SIEGEL IS AWARE. PATIENT WAS EXPLAINED POC FOR TODAY AND VERBALIZED UNDERSTANDING. PATIENT IS AWARE OF HOW TO USE THE CALL LIGHT FOR ASSISTANCE. THE BED IS LOWERED WITH CALL LIGHT WITHIN REACH.
[2016-12-19 07:17] LABS: ANION GAP 8.2 (8-16); CARBON DIOXIDE 33.3 mmol/L (21-32); CHLORIDE 105 mmol/L (98-107); GLUCOSE 87 mg/dL (74-106); POTASSIUM 3.5 mmol/L (3.5-5.1); SODIUM SERUM 143 mmol/L (136-145); UREA NITROGEN, BLOOD 7 mg/dL (7-18)
[2016-12-19 07:25] LABS: MAGNESIUM 1.8 mg/dL (1.8-2.4); PHOSPHORUS 3.5 mg/dL (2.5-4.9)
--- NOTE | 2016-12-19 07:48 | NUR ---
RESIDENT ROBBIN INFORMED THAT PATIENT ZOSYN IV ANTIBIOTIC WAS DISCONTINUED AND I ALSO ASKED HER IF SHE WOULD LIKE TO ORDER FLUIDS FOR THE PATIENT BECAUSE HIS NOT ON ANY IV FLUIDS. SHE SAID SHE WILL TAKE CARE OF IT.
[2016-12-19 08:00] VITALS: BP 100/72
--- NOTE | 2016-12-19 08:10 | NUR ---
SPOKE WITH DR SIEGEL REGARDING ZOSYN MEDICATION WAS AND IF SHE WOULD LIKE TO CONTINUE PATIENT WITH IV ABX. STATED SHE WILL LOOK INTO IT.
[2016-12-19] MEDS: METOPROLOL SUCCINATE 50 MG TABER PO SCH (09:00)
[2016-12-19] MEDS: LISINOPRIL 5 MG TAB PO SCH (09:00)
--- NOTE | 2016-12-19 09:15 | NUR ---
SPOKE WITH DR SÁNCHEZ REGARDING PATIENTS LABS AND CURRENT STATE. DR ASKED FOR HEPATIC PANEL BE ORDERED. DR SIEGEL WAS NOTIFIED. HEPATIC PANEL IS STILL PENDING. DR SÁNCHEZ WILL BE NOTIFIED OF HEPATIC PANEL RESULTS.
--- NOTE | 2016-12-19 09:45 | NUR ---
PROVIDED PATIENT WITH DRESSING CHANGE AT SUJATA DRAIN SITE. OLD DRESSING IS MODERATELY SATURATED IN YELLOW DRAINAGE. CHANGED DRESSING AND USED DRAIN GAUZE AND 4X4 GAUZE AND SECURED WITH PAPER TAPE.
[2016-12-19] MEDS: PANTOPRAZOLE 40 MG INJ VIAL IVP SCH (09:54)
[2016-12-19] MEDS: LACTOBACILLUS RHAMNOSUS GG 1 EACH CAP PO SCH ×2 (09:54→15:57)
[2016-12-19] MEDS: ASPIRIN 81 MG TAB.CHEW PO SCH (09:54)
[2016-12-19] MEDS: SIMETHICONE 80 MG TAB.CHEW PO SCH (09:55)
[2016-12-19] MEDS: DOCUSATE SODIUM 100 MG GELCAP PO SCH (09:55)
[2016-12-19 10:06] LABS: ALBUMIN 2.2 g/dL (3.4-5.0); BILIRUBIN,DIRECT 0.6 mg/dL (0.0-0.3)
[2016-12-19 10:10] VITALS: BP 130/68
--- NOTE | 2016-12-19 10:10 | NUR ---
ASSISTED WITH AMB ON THE UNIT. PATIENT HAS STABLE GAIT. PATIENT STATED "I FEEL DIZZY" (IN DOMINICAN) AND WAS TAKEN TO HIS ROOM. PATIENT V/S WERE TAKEN PRIOR AMB AND AFTER. V/S ARE WNL AND CHARTED.
[2016-12-19 10:15] VITALS: BP 133/73
--- NOTE | 2016-12-19 10:15 | NUR ---
PATIENT IS NOW SITTING IN CHAIR AND SHOWS NO S/S OF ACUTE DISTRESS ON ROOM AIR AFTER AMBULATING. PATIENT DENIES PAIN. PATIENT WAS SAT ON CHAIR AND EXPLAINED TO PERFORM IS EXERCISES. PATIENT DID 10 REPETITIONS AT 500. PATIENT IS WATCHING TV.
[2016-12-19] MEDS ORDERED: POTASSIUM CHLORIDE 20% 40 MEQ/15 ML UDC PO SCH (10:25)
[2016-12-19] MEDS ORDERED: FUROSEMIDE 20 MG/2 ML VIAL IVP SCH (10:25)
--- NOTE | 2016-12-19 11:00 | NUR ---
PATIENT WAS SEEN BY DR SIEGEL. PATIENT EXPLAINED CONCERNS REGARDING HIS CARE WHEN HE GOES HOME. HE STATED "MY DAUGHTER LEAVES TO WORK AT 2PM AND SON IN LAW IS NEVER HOME". I SPOKE WITH DAUGHTER MARY AND SHE EXPLAINED PATIENT'S WILL BE VISITING FROM [facility] TO CARE FOR HIM AT HOME. PATIENT IS AWARE AND SO IS DR. PATIENT STATES HE FEELS MORE COMFORTABLE KNOWING WILL BE THERE AT HOME TO VISIT. DR SIEGEL EXPLAINED HE WILL BE GOING HOME WITH SUJATA DRAIN. WILL PERFORM FAMILY AND PATIENT TEACHING ON HOW TO CHANGE DRESSING ON SUJATA DRAIN AND EMPTYING SUJATA DRAIN. PATIENT'S DAUGHTER EXPLAINS SHE WILL BE COMING TO PICK PATIENT UP AT 1700. PATIENT IS AWARE. HE IS AAOX3 AND SHOWS NO S/S OF ACUTE DISTRESS ON ROOM AIR.
[2016-12-19] MEDS ORDERED: ACET-2863 PO (11:36)
--- NOTE | 2016-12-19 13:46 | NUR ---
TOLERATED INCENTIVE SPIROMETRY THERAPY WELL WITHOUT INCIDENT ENCOURAGED PATIENT TO USE EVERY 1-2 HOURS WHILE AWAKE
--- NOTE | 2016-12-19 14:50 | NUR ---
PATIENT BEGAN TO C/O CRAMPS ON BOTH UE. DR SIEGEL AWARE AND SAW PATIENT. NO NEW ORDERS.
[2016-12-19 16:00] VITALS: BP 113/80
[2016-12-19] MEDS: RIVAROXABAN 10 MG TAB PO SCH (16:02)
--- NOTE | 2016-12-19 17:00 | NUR ---
PATIENT FAMILY AT BEDSIDE WILL EDUCATE TO CARE FOR SUJATA DRAIN DRESSING BY DEMONSTRATING HANDS ON AND VERBAL TEACHING.
--- NOTE | 2016-12-19 17:05 | NUR ---
PATIENT FAMILY ARRIVED ON UNIT AND WAS EDUCATED ON HOW TO CHANGE DRESSING FROM SUJATA DRAIN SITE. FAMILY WERE TAUGHT TO LOOK FOR SIGNS OF INFECTION SUCH BUT NOT LIMITING TO REDNESS, YELLOW OR GREEN PUSS FROM WOUND, AND/OR FEVER. PATIENT AND PATIENT FAMILY VERBALIZED UNDERSTANDING IF SYMPTOMS PRESENT ITSELF TO TAKE PATIENT TO NEAREST ER DEPARTMENT. PATIENT WAS GIVEN DISCHARGE INSTRUCTIONS AND PRESCRIPTIONS. PATIENT AGREED FOR [place] DAUGHTER OF PATIENT TO SIGN FOR HIM. ALL PAPERWORK WAS SIGNED. ALL QUESTIONS ANSWERED. ALL BELONGINGS AND PRESCRIPTIONS IN PATIENT POSSESSION. IV DISCONTINUED WITH CANNULA INTACT. WRISTBANDS REMOVED. PATIENT REFUSED TO USE WHEELCHAIR AND AMB WITH CAN OFF UNIT IN STABLE CONDITIONS WITH FAMILY PRESENT AT SIDE.
[2016-12-19] MEDS ORDERED: POTASSIUM CHLORIDE 20% 40 MEQ/15 ML UDC GT SCH (21:00)
--- NOTE | 2016-12-20 07:47 | NUR ---
RECEIVED HARD COPY APPROVAL ADMISSION FROM 12/14/16. REF #[id number].
--- NOTE | 2016-12-20 08:18 | NUR ---
FAXED MUSIC NOTE, DISCHARGE SUMMARY AND DISCHARGE INSTRUCTIONS TO [facility] [phone]
--- NOTE | 2016-12-20 13:06 | NUR ---
CALLED [facility] AND SPOKE WITH REZA. SHE SAID SHE NEEDS AN AUTH FIRST FROM [facility]. I CALLED [employer] [facility], THEY COULD NOT GIVE ME AN AUTH AT THIS TIME.
--- NOTE | 2016-12-21 11:02 | NUR ---
CALLED MARILEE AT [facility]. I FAXED THE FACE SHEET AND OPERATIVE REPORT AND ORDER TO HER AT [phone].
--- NOTE | 2016-12-21 11:14 | NUR ---
CALLED [facility] AND SPOKE WITH REZA [phone] SHE SAID TO FAX INFORMATION TO HER AT [phone], WHICH I DID.
--- NOTE | 2016-12-21 14:24 | NUR ---
RECEIVED A CALL REZA FROM [facility] [employer] [facility] . THEY HAVE ACCEPTED THE PATIENT. SHE GOT AN AUTH FROM JUAN F FROM [place]. AUTH [id number].
== END 2016-12-19 17:05 | disposition home health service (06) | DRG 263 ==
LOC: EDBD → MED 21:32 → EDSEX 21:32 → EDBD 12-14 02:29 → MTU 12-14 02:29 → MERGE 12-14 02:29
PROVIDERS: ADMIT Family Medicine; ATTEND Family Medicine
PROC: 0FT44ZZ Resection of Gallbladder, Percutaneous Endoscopic Approach (ICD-10-PCS; principal; 2016-12-14 12:30)
PROC: 0FC98ZZ Extirpation of Matter from Common Bile Duct, Via Natural or Artificial Opening Endoscopic (ICD-10-PCS; 2016-12-17)
PROC: BF131ZZ Fluoroscopy of Gallbladder and Bile Ducts using Low Osmolar Contrast (ICD-10-PCS; 2016-12-17)
DX: K80.00 Calculus of gallbladder with acute cholecystitis without obstruction (principal); N17.0 Acute kidney failure with tubular necrosis; I50.41 Acute combined systolic (congestive) and diastolic (congestive) heart failure; E44.0 Moderate protein-calorie malnutrition; I48.2 Chronic atrial fibrillation; K21.9 Gastro-esophageal reflux disease without esophagitis; I10 Essential (primary) hypertension; I25.10 Atherosclerotic heart disease of native coronary artery without angina pectoris; K59.00 Constipation, unspecified; R31.9 Hematuria, unspecified; Z68.26 Body mass index [BMI] 26.0-26.9, adult; Z90.49 Acquired absence of other specified parts of digestive tract; Z79.899 Other long term (current) drug therapy
CPT/HCPCS: 36415; 71010; 74000; 76001; 76705; 76770; 78445; 80048; 80053; 80076; 81001; 82150; 83036; 83605; 83690; 83735; 83880; 84100; 84439; 84443; 84484; 85025; 85610; 85730; 86886; 86900; 86901; 87040; 87081; 88304; 93005; 94640; 96372; 96374; 97110; 97116; 99285; C1727; C1769; C1887; C9113; J0330; J0690; J0694; J1100; J1170; J1610; J1885; J1940; J2175; J2250; J2405; J2543; J2704; J2710; J3010; J3490; J7030; J7042; J7060; J7120; J7613; J7644; Q0092; Q9965; Q9967

== ENCOUNTER 2017-03-17 13:10 | Emergency (ER) | payer OTHER ==
[~2017-03-17] VITALS: Ht 167.6 cm; Wt 68.5 kg
[~2017-03-17 13:10] MED LIST changes: +ACET-2863 PO; -METO25TA PO; +METO25TE2 PO
[2017-03-17 13:34] VITALS: BP 157/70
--- NOTE | 2017-03-17 13:43 | NUR ---
Patient ambulated to bed 08.
--- NOTE | 2017-03-17 13:45 | NUR ---
85M BIB FAMILY WITH C/O 01/25 "DULL" CONSTANT NON RADIATING GENERALIZED ABD PAIN X 3 DAYS PT DENIES ANY RECENT FEVERS, CP, V/D, OR NAUSEA AT THIS TIME. PT REPORTS CONSTIPATION, LAST BM THIS AM; PT IS AOX4, RR ARE EVEN AND UNLABORED. PT POSITIONED TO COMFORT, BED DOWN. NAD. ER MD AWARE OF PT STATUS. WILL CONTINUE TO MONITOR.
--- NOTE | 2017-03-17 13:46 | NUR ---
Dr. Lamb evaluating patient at bedside.
[2017-03-17] MEDS ORDERED: NACL 0.9% 1,000 ML IV ONE (13:55)
[2017-03-17] MEDS ORDERED: KETOROLAC 30 MG/ML VIAL IVP ONE (13:55)
--- NOTE | 2017-03-17 14:20 | NUR ---
PT TO CT VIA DULCE ACCOMPANIED BY [employer] SPECIALIST
[2017-03-17 14:27] LABS: HEMATOCRIT 39.4 % (36-52); HEMOGLOBIN 12.8 g/dL (12.0-18.0); MEAN CORPUSCULAR HEMOGLOBIN 31 pg (27-31); MEAN CORPUSCULAR HGB CONC 33 g/dL (33-37); MEAN CORPUSCULAR VOLUME 94 fL (80-94); PLATELET COUNT (AUTO) 342 K/uL (140-450); RED BLOOD CELL COUNT(AUTO) 4.21 MIL/uL (4.20-6.10); RED CELL DISTRIBUTION WIDTH 13.6 % (11.6-13.7); WHITE BLOOD COUNT (AUTO) 12.7 K/uL (4.8-10.8)
--- NOTE | 2017-03-17 14:32 | NUR ---
pt returned from ct via gurney accompanied by radiology practitioner assistant
[2017-03-17 14:41] LABS: ANION GAP 10.4 (8-16); CARBON DIOXIDE 29.8 mmol/L (21-32); CHLORIDE 98 mmol/L (98-107); CREATININE 0.9 mg/dL (0.7-1.3); GLUCOSE 117 mg/dL (74-106); POTASSIUM 4.2 mmol/L (3.5-5.1); SODIUM SERUM 134 mmol/L (136-145); UREA NITROGEN, BLOOD 15 mg/dL (7-18)
[2017-03-17 14:46] LABS: ALBUMIN 2.3 g/dL (3.4-5.0); ASPARTATE AMINOTRANSFERASE 25 U/L (15-37); LIPASE 47 U/L (73-393); TOTAL BILIRUBIN 0.7 mg/dL (0.0-1.0)
[2017-03-17 14:57] LABS: LYMPHOCYTES % (MANUAL) 9 % (20-46); MONOCYTES % (MANUAL) 9 % (5-12); PROMYELOCYTES % 1 % (0-0)
--- NOTE | 2017-03-17 16:00 | NUR ---
pt in [facility] without any complaints; attempting to contact [employer] for transportation home
[2017-03-17 16:45] VITALS: BP 142/87
--- NOTE | 2017-03-17 16:45 | NUR ---
Patient discharged with v/s stable. Written and verbal after care instructions given and explained. Patient alert, oriented and verbalized understanding of instructions. Ambulatory with steady gait. All questions addressed prior to discharge. ID band removed. Patient advised to follow up with PMD. Rx of Motrin and Hazel given. Patient educated on indication of medication including possible reaction and side effects. Opportunity to ask questions provided and answered.
== END 2017-03-17 16:45 | disposition home or self-care (01) ==
LOC: MED 13:10
DX: R10.11 Right upper quadrant pain (principal); R11.0 Nausea; I10 Essential (primary) hypertension; Z90.89 Acquired absence of other organs
CPT/HCPCS: 36415; 74176; 80053; 81002; 83690; 85025; 96361; 96374; 99285; J1885; J7030